=== PATIENT | male | born 1980 | race Caucasian/White ===

== ENCOUNTER → 2019-12-23 16:16 | Outpatient (BNVA) | payer OTHER, SELFPAY | PROVIDERS: Family Provider Internal Medicine; PCP Internal Medicine; Visit Provider Nurse Practitioner Family | DX: Z11.59 Encounter for screening for other viral diseases (principal); Z20.828 Contact with and (suspected) exposure to other viral communicable diseases; J06.9 Acute upper respiratory infection, unspecified | CPT/HCPCS: 87635 ==

== ENCOUNTER → 2020-03-30 15:13 | Outpatient (BNVA) | payer OTHER, SELFPAY | PROVIDERS: Family Provider Internal Medicine; PCP Internal Medicine; Visit Provider Podiatrist Foot & Ankle Surgery | DX: M79.672 Pain in left foot (principal) | CPT/HCPCS: 73630 ==

== ENCOUNTER 2020-05-01 19:20 | Emergency (ER) | payer OTHER, SELFPAY ==
[2020-05-01 19:29] VITALS: BP 186/107; PULSE 95; RESP 16; TEMP 36.7; O2SAT 99; BMI 29.9
[2020-05-01 19:51] VITALS: BP 170/98; PULSE 98; RESP 17; O2SAT 97
--- NOTE | 2020-05-01 19:51 | ECG_ITS ---
[facility] Test Date: 2020-05-01 Pat Name: Fei Panchal Department: Room: Gender: Male Head Of Stock: : 1980 Requested By: Reginald Loving Order Number: [id number] Luis Solo MD: Dolly Hernandez M.D. Measurements Intervals [place] Rate: 99 P: 63 OR: 146 QRS: 20 QRSD: 101 T: 0 QT: 324 QTc: 416 Interpretive Statements SINUS RHYTHM POSSIBLE RIGHT VENTRICULAR CONDUCTION DELAY [RSR (QR) IN V1/V2] NONSPECIFIC T-WAVE ABNORMALITY Compared to ECG 02/15/2017 00:02:03 T-wave abnormality now present Sinus arrhythmia no longer present Electronically Signed On 05-02-2020 12:43:19 QUILL MACHINE TENDER by Dolly Hernandez M.D. [id number]
--- NOTE | 2020-05-01 19:51 | XR_ITS ---
WS: [id number] Exam: XR chest 1V portable [id number] Date/Time of Exam: 05/01/2020 7:51 PM Reason For Exam: cp Comparison 08/24/2016. The lungs are fully expanded and clear. Unremarkable cardiomediastinal structures. Several old right rib fractures. Old fracture and separation of the distal left clavicle. XR/XR chest 1V portable [id number] IMPRESSION: 1. No acute cardiopulmonary finding. No change.
--- NOTE | 2020-05-01 20:08 | ED_ITS ---
HPI - Chest Pain General: Chief Complaint: Chest Pain Stated Complaint: CP Time Seen by Provider: 05/01/20 19:49 History of Present Illness: HPI narrative: The patient is a 40-year-old male with past medical history hypertension who comes to the ER complaining of midsternal chest pain that started last night and it comes and goes. Not related to movement, breathing, or any other factors. 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 MD complaint: chest pain Prior episodes: No Onset: during rest Pain location: substernal Pain radiation: none Severity: mild Quality: sharp Exacerbating factors: nothing Associated symptoms: Reports no associated symptoms; Deny abdominal pain, dyspnea or palpitations Review of Systems General: Reports: 10 or more systems reviewed and unremarkable except in HPI and below Const: Denies: fatigue Eyes: Denies: change in vision, blurry vision or eye redness ENMT: Denies: throat pain, swelling of lips/tongue, ear or mastoid pain or nasal congestion Card: Reports: chest pain; Denies: palpitations, irregular heart rhythm, edema, dyspnea on exertion or orthopnea Resp: Denies: dyspnea, productive cough or non-productive cough GI: Denies: abdominal pain, diarrhea or GI cramping : Denies: flank pain, urinary frequency or urinary urgency Musc: Denies: neck pain, back pain, extremity pain, joint pain, joint redness, limited range of motion or muscle weakness Skin/Breast: Denies: rash, pruritus, erythema, skin pain or skin tenderness Neuro: Denies: headache(s), numbness in extremities, weakness in extremities, sensory changes, difficulty walking, dizziness, confusion or Slurred speech present Psych: Denies: anxiety or depression Endo: Denies: polyuria All/Imm: Denies: urticaria, throat swelling or tongue swelling PFSH ED PFSH: Medical History (Updated 05/01/20 @ 22:23 by Reginald Loving MD) GERD (gastroesophageal reflux disease) Hypertension Muscle spasm Social History (Updated 03/30/20 @ 15:27 by Kayley Hernandez LPN) Smoking and tobacco status: current every day smoker cigarettes Packs smoked per day: 0.5 Alcohol intake: never Lives independently: Yes Household members: spouse and children Marital status: Physical Exam Const: COMMON NORMALS: no acute distress, average body habitus, patient oriented x3, no limitations, healthy appearing, alert and well nourished GENERAL APPEARANCE: cooperative, comfortable, well kempt and well developed ORIENTATION/CONSCIOUSNESS: Yes awake, Yes oriented to person, Yes oriented to place and Yes oriented to time HENMT: COMMON NORMALS: normocephalic, external ears normal and Normal external nose present HEAD & SCALP: normal to inspection and normocephalic NOSE: Normal external nose present EXTERNAL EAR: Yes external ears normal MOUTH: Normal oral and palatal mucosa present THROAT: posterior oropharynx normal Eye: COMMON NORMALS: Equal, round and reactive pupils present and EOMs intact bilaterally GENERAL EYE: appearance normal, both eyes and all related structures PUPIL: Yes Equal, round and reactive pupils present Neck/C-Spine: COMMON NORMALS: full ROM, no lymphadenopathy, no meningeal signs and no JVD GENERAL: Yes normal visual inspection Lymph: LYMPHATIC: no lymphadenopathy noted Chest: COMMONS NORMALS: normal inspection of the chest and normal palpation of entire chest wall Resp: COMMON NORMALS: normal respiratory effort, No retractions, No use of accessory muscles, clear to auscultation bilaterally and percussion normal EFFORT & INSPECTION: Yes able to speak in complete sentences AUSCULTATION: clear to auscultation bilaterally PERCUSSION: percussion normal Cardio: COMMON NORMALS: no JVD, regular rate, regular rhythm, S1 normal heart sound present, S2 normal heart sound present and Peripheral pulses 2+ throughout RATE: regular rate RHYTHM: regular rhythm HEART SOUNDS: S1 normal heart sound present and S2 normal heart sound present PERIPHERAL PULSES: Peripheral pulses 2+ throughout GI: COMMON NORMALS: Normal to inspection, nondistended, normoactive bowel sounds present, Soft to palpation, non-tender and no masses INSPECTION: Yes normal to inspection PALPATION: Yes Soft to palpation : COMMON NORMALS: Yes no CVA tenderness BLADDER/KIDNEY EXAM: Yes no CVA tenderness Back/Pelvis: COMMON NORMALS: no CVA tenderness, thoracic and lumbar spine normal to inspection, no thoracic nor lumbar tenderness and thoraco-lumbar ROM normal Extremity: COMMON NORMALS: normal to inspection, full ROM, capillary refill normal, no joint enlargement and no pedal edema GENERAL: Yes normal exam except as noted Neuro: COMMON NORMALS: patient oriented x3, CN's II-XII intact bilaterally, moves all extremities, no focal motor deficits, no sensory deficits noted and gait normal SENSORIUM/ORIENTATION: Yes alert, Yes oriented to person, Yes oriented to place and Yes oriented to time MENINGEAL SIGNS: Yes no meningeal signs Psych: COMMON NORMALS: mental status grossly normal, Normal thought process present, cooperative, normal affect and speech normal APPEARANCE: Yes well kempt ATTITUDE: Yes calm SPEECH: Yes normal speech THOUGHT PROCESS: Normal thought process present Skin: COMMON NORMALS: no rashes or lesions noted GENERAL SKIN EXAM: no rashes or lesions noted Course Vital Signs: Vital signs: Vital Signs Temperature 98.0 F 05/01/20 19:29 Pulse Rate 98 05/01/20 19:51 Respiratory Rate 17 05/01/20 19:51 Blood Pressure 170/98 05/01/20 19:51 Pulse Oximetry 97 05/01/20 19:51 MDM - Chest Pain MDM Narrative: Medical decision making narrative: Patient came into the ER complaining of atypical chest pain. EKG and troponin were normal. D-dimer was elevated. Chest x-ray and CT angiogram of the chest were normal. Stable for discharge home. Recommended following up with a insole tape stitcher uco and placed a case management referral to help him do this. Follow-up with primary care physician in 2 to 3 days to monitor improvement of symptoms. Return to the ER with worsening symptoms Lab Data: Labs: Lab Results 05/01/20 05/01/20 05/01/20 Range/Units 20:05 20:05 20:05 WBC 6.5 (4.0-10.0) 10^3/ uL RBC 4.53 (4.1-5.3) 10^6/u L Hgb 14.2 (11.7-16.6) g/dL Hct 41.5 L (42.0-52.0) % MCV 91.6 (80-94) fL MCH 31.3 (28.0-34.0) pg MCHC 34.2 (30.0-36.0) g/dL RDW 13.2 (12.1-15.1) % Plt Count 286 (130-400) 10^3/c mm MPV 9.9 (7.4-10.4) fL Neut % (Auto) 49.1 % Lymph % (Auto) 37.9 % [place] % (Auto) 10.7 % Eos % (Auto) 1.5 % Baso % (Auto) 0.6 % Neut # (Auto) 3.17 (1.8-7.7) 10^3/u L Lymph # (Auto) 2.5 (0.8-4.8) 10^3/u L [place] # (Auto) 0.7 (0.2-0.9) 10^3/u L Eos # (Auto) 0.1 (0.0-0.8) 10^3/u L Baso # (Auto) 0.0 (0.0-0.1) 10^3/u L Nucleated RBC % (a uto) 0 % Nucleated RBCs # 0.0 /100WBC D-Dimer 1.96 H (0-0.59) ug/mIFE U Sodium 137 (136-145) mmol/L Potassium 4.1 (3.5-5.1) mmol/L Chloride 101 (98-107) mmol/L Carbon Dioxide 25 (22-29) mmol/L Anion Gap 15.1 (5-19) BUN 15 (6-20) mg/dL Creatinine 1.0 (0.7-1.2) mg/dL GFR Calculation 82.8 L (90-130) mL/min Glucose 87 (65-115) mg/dL Calculated Osmolal ity 284 L (285-295) mOsm/k g Calcium 9.2 (8.5-10.5) mg/dL Total Bilirubin 0.2 (0.15-1.2) mg/dL AST 24 (0-40) U/L ALT 51 H (0-41) U/L Alkaline Phosphata se 68 (40-130) IU/L Troponin T Baselin e (0-15) ng/L Total Protein 7.4 (6.6-8.7) g/dL Albumin 4.4 (3.5-5.2) g/dL Globulin 3.0 (1.3-4.6) g/dL 05/01/20 Range/Units 20:05 WBC (4.0-10.0) 10^3/ uL RBC (4.1-5.3) 10^6/u L Hgb (11.7-16.6) g/dL Hct (42.0-52.0) % MCV (80-94) fL MCH (28.0-34.0) pg MCHC (30.0-36.0) g/dL RDW (12.1-15.1) % Plt Count (130-400) 10^3/c mm MPV (7.4-10.4) fL Neut % (Auto) % Lymph % (Auto) % [place] % (Auto) % Eos % (Auto) % Baso % (Auto) % Neut # (Auto) (1.8-7.7) 10^3/u L Lymph # (Auto) (0.8-4.8) 10^3/u L [place] # (Auto) (0.2-0.9) 10^3/u L Eos # (Auto) (0.0-0.8) 10^3/u L Baso # (Auto) (0.0-0.1) 10^3/u L Nucleated RBC % (a uto) % Nucleated RBCs # /100WBC D-Dimer (0-0.59) ug/mIFE U Sodium (136-145) mmol/L Potassium (3.5-5.1) mmol/L Chloride (98-107) mmol/L Carbon Dioxide (22-29) mmol/L Anion Gap (5-19) BUN (6-20) mg/dL Creatinine (0.7-1.2) mg/dL GFR Calculation (90-130) mL/min Glucose (65-115) mg/dL Calculated Osmolal ity (285-295) mOsm/k g Calcium (8.5-10.5) mg/dL Total Bilirubin (0.15-1.2) mg/dL AST (0-40) U/L ALT (0-41) U/L Alkaline Phosphata se (40-130) IU/L Troponin T Baselin e 6 (0-15) ng/L Total Protein (6.6-8.7) g/dL Albumin (3.5-5.2) g/dL Globulin (1.3-4.6) g/dL Discharge Plan Discharge Patient Disposition: Home Clinical Impression: Atypical chest pain Condition: Stable Prescriptions: No Action prazosin 2 mg capsule 2 mg PO DAILY RF: 0 losartan 50 mg tablet 50 mg PO DAILY RF: 0 clomipramine 50 mg capsule 50 mg PO DAILY RF: 0 tizanidine 4 mg capsule 4 mg PO BID PRNRF: 0 ibuprofen 200 mg tablet 200 mg PO Q6H PRNRF: 0 omeprazole 20 mg capsule,delayed release(DR/EC) 20 mg PO DAILY RF: 0 prednisone 10 mg tablet 10 mg PO DIRECTED Qty: 42 RF: 0 (DME) Sole Supports See Rx Instructions .ROUTE .MEDSUPPLY Qty: 1 RF: 0 Discharge Orders: Discharge ED (Routine); Ordered 05/01/20 Ordered By: Reginald Loving Referrals: Madeleine Khan MD [Primary Care Provider] - Discharge Diet: Advance as tolerated Discharge Activity: Resume usual activity Patient Instructions: Chest Pain (ED), Opioid Safety Activity Restrictions/Additional Instructions: The cause of your chest pain is unclear but it has resolved since being in the ER and your testing is normal. Please follow-up with your primary care physician in a few days to monitor improvement of your symptoms. I have placed a referral with our case loader operator who will help you get a appointment with a insole tape stitcher uco. They should call you tomorrow to help get this arranged. Please return to the ER with any worsening symptoms Coding Level of Care Code ED Trackwalker for Kev Fwd Exam Comprehensive
[2020-05-01 20:13] LABS: Basophils % 0.6 %; Eosinophils # 0.1 10^3/uL (0.0-0.8); Eosinophils % 1.5 %; Hematocrit 41.5 % (42.0-52.0); Hemoglobin 14.2 g/dL (11.7-16.6); Lymphocytes # 2.5 10^3/uL (0.8-4.8); Lymphocytes % 37.9 %; Mean Corpuscular HGB Conc 34.2 g/dL (30.0-36.0); Mean Corpuscular Hemoglobin 31.3 pg (28.0-34.0); Mean Corpuscular Volume 91.6 fL (80-94); Mean Platelet Volume 9.9 fL (7.4-10.4); Monocytes # 0.7 10^3/uL (0.2-0.9); Monocytes % 10.7 %; Neutrophils # 3.17 10^3/uL (1.8-7.7); Neutrophils % 49.1 %; Nucleated Red Blood Cells % 0 %; Platelet Count 286 10^3/cmm (130-400); Red Blood Count 4.53 10^6/uL (4.1-5.3); Red Cell Distribution Width 13.2 % (12.1-15.1); White Blood Count 6.5 10^3/uL (4.0-10.0)
[2020-05-01 20:26] LABS: D Dimer 1.96 ug/mIFEU (0-0.59)
[2020-05-01 20:31] LABS: Alanine Aminotransferase 51 U/L (0-41); Albumin Level 4.4 g/dL (3.5-5.2); Alkaline Phosphatase 68 IU/L (40-130); Anion Gap 15.1 (5-19); Aspartate Amino Transferase 24 U/L (0-40); Blood Urea Nitrogen 15 mg/dL (6-20); Calcium 9.2 mg/dL (8.5-10.5); Carbon Dioxide 25 mmol/L (22-29); Chloride 101 mmol/L (98-107); Creatinine Clr Calc Pharmacy 116.9289; Glomerular Filtration Rate 82.8 mL/min (90-130); Glucose 87 mg/dL (65-115); Osmolality Calculated 284 mOsm/kg (285-295); Potassium 4.1 mmol/L (3.5-5.1); Sodium 137 mmol/L (136-145); Total Bilirubin 0.2 mg/dL (0.15-1.2); Total Protein 7.4 g/dL (6.6-8.7)
[2020-05-01 20:33] LABS: Troponin(5th) Baseline 6 ng/L (0-15)
--- NOTE | 2020-05-01 20:37 | CTR_ITS ---
PROCEDURE INFORMATION: Exam: CT Angiography Chest With Contrast Exam date and time: 05/01/2020 8:58 PM Age: 40 years old Clinical indication: Sternal or substernal pain; Patient HX: C/O mid sternal cp w elev d-dimer; Additional info: R/O pe TECHNIQUE: Imaging protocol: Computed tomographic angiography of the chest with contrast. 3D rendering (Not supervised by radiologist): MIP and/or 3D reconstructed images were created by the technologist. Total images: 921 Radiation optimization: All CT scans at this facility use at least one of these dose optimization techniques: automated exposure control; mA and/or kV adjustment per patient size (includes targeted exams where dose is matched to clinical indication); or iterative reconstruction. Contrast material: OMNI 350; Contrast volume: 86 ml; Contrast route: INTRAVENOUS (IV); COMPARISON: CR XR chest 1V portable [id number] 05/01/2020 8:04 PM RADIATION DOSE METRICS: Total DLP (mGy-cm): 618.72 FINDINGS: Pulmonary arteries: Suboptimal pulmonary arterial contrast enhancement. No grossly visible central pulmonary embolism/pulmonary arterial thrombus. Aorta: The thoracic aorta is nonaneurysmal. No visible intimal flap or dissection. Lungs: No visible active interstitial or alveolar airspace disease. Calcified granulomas of antecedent disease. Pleural spaces: Unremarkable. No pneumothorax. No pleural effusion. Heart: Unremarkable. No cardiomegaly. No pericardial effusion. No visible coronary artery disease. Lymph nodes: No visible active mediastinal or hilar lymphadenopathy. Few marginally prominent mediastinal and hilar lymph nodes of doubtful clinical significance. Dominant anterior mediastinal lymph node measures only 7 mm in the short axis. Large calcified mediastinal and hilar complexes of antecedent granulomatous disease. Adrenal glands: Small 15 mm left adrenal adenoma. No follow-up recommended. Right adrenal gland unremarkable. Bones/joints: No visible active or acute osseous pathology. Old right rib fractures. Soft tissues: Unremarkable. CT/CT angio chest PE protcl [id number] IMPRESSION: 1. Suboptimal pulmonary arterial contrast enhancement. No grossly visible central pulmonary embolism/pulmonary arterial thrombus. 2. Antecedent granulomatous disease. 3. Small 15 mm left adrenal adenoma. No follow-up recommended. Radiation Dose CTDIVOL = (mGy): DLP = 618.72 (mGy-cm)
[2020-05-01] MEDS: iohexol 350 mg/mL 100 mL Btl IV (21:25)
[2020-05-01 22:34] VITALS: BP 148/100; PULSE 84; RESP 17; TEMP 36.7; O2SAT 98
--- NOTE | 2020-05-02 10:34 | DCPLANNER ---
manufacturing area manager had message to schedule a follow up appointment for patient with [facility]. manufacturing area manager called [facility], spoke with Marya, gave clinic patients information. A follow up appointment was scheduled for Monday, May 11, 2020 at 8:[address] Hernandez. manufacturing area manager called phone number [phone], unable to speak with patient at this time. manufacturing area manager left a voicemail for patient that included the appointment information. Patient has [employer] insurance, case assistant emailed patients information to June, with [employer] [facility] [employer] [facility], along with the appointment information, so that the authorization process can be started.
--- NOTE | 2020-05-17 12:43 | DCPLANNER ---
Patient had follow up appointment scheduled for 05.11.[address] Reid at [facility] - patient did attend appointment.
== END 2020-05-01 22:34 | disposition home or self-care (01) ==
PROVIDERS: Emergency Provider Family Medicine; PCP Family Medicine
DX: R07.89 Other chest pain (principal); I10 Essential (primary) hypertension; F17.210 Nicotine dependence, cigarettes, uncomplicated
CPT/HCPCS: 71045; 71275; 80053; 84484; 85025; 85378; 93005; 99284; Q9967

== ENCOUNTER → 2020-10-03 15:21 | Outpatient (BNVA) | payer OTHER, SELFPAY | PROVIDERS: PCP Family Medicine; Visit Provider Podiatrist Foot & Ankle Surgery | DX: M79.671 Pain in right foot (principal) | CPT/HCPCS: 73630 ==

== ENCOUNTER 2020-10-03 16:14 | Outpatient (CLI) | payer OTHER, SELFPAY | END 2020-10-03 16:15 | disposition home or self-care (01) | LOC: SPT 16:15 | PROVIDERS: PCP Family Medicine; Visit Provider Podiatrist Foot & Ankle Surgery | DX: Z46.89 Encounter for fitting and adjustment of other specified devices (principal); S86.011D Strain of right Achilles tendon, subsequent encounter; X58.XXXD Exposure to other specified factors, subsequent encounter | CPT/HCPCS: 97760; L4361 ==

== ENCOUNTER 2020-11-01 14:43 | Outpatient (CLI) | payer OTHER, SELFPAY ==
--- NOTE | 2020-11-01 14:46 | MR_ITS ---
WS: [id number] MRI RIGHT ANKLE NONCONTRAST TECHNIQUE: Sagittal proton density, sagittal STIR, axial proton density, axial T1, axial T2 fat sat, coronal proton density, coronal proton density fat sat, coronal T2 fat sat. CLINICAL INFORMATION: Rupture of achilles tendon COMPARISON: None. FINDINGS: Diffuse edema in the dorsal calcaneus with fluid in the retrocalcaneal bursa compatible with retrocal caneal bursitis. Achilles tendon appears intact. Tiny amount of tendinosis in the distal Achilles ins ertion. No evidence of high-grade tear. Associated edema in Kager's fat pad. No significant tendon th ickening. Normal medial and lateral malleolus. Normal talar dome. Tenosynovitis involving the flexor compartmen t tendons more prominent about the flexor hallucis longus with fluid along the tendon sheath. Visuali zed extensor compartment tendons appear normal. Normal peroneal brevis and longus. Normal peroneal te ndon sheaths. Normal talocalcaneal articulation. Normal navicular. Tarsal bones otherwise appear normal. Normal maggi ar neck. MR/MR ankle RT wo con* [id number] IMPRESSION: 1. Diffuse edema involving the dorsal calcaneus at the Achilles insertion with surrounding soft tissue edema. Fluid within the retrocalcaneal bursa compatibl e with retrocalcaneal bursitis. 2. Associated subchondral degenerative changes involving the dorsal calcaneus. 3. Achilles tendon appears intact. Minimal tendinosis involving the Achilles i nsertion. No high-grade tears. 4. Otherwise normal bone marrow signal. Normal ankle mortise. 5. Normal peroneus longus and brevis. 6. Tenosynovitis involving the flexor compartment tendons more prominent along the flexor hallucis longus.
== END 2020-11-01 14:44 | disposition home or self-care (01) ==
LOC: RADSHAW 14:45
PROVIDERS: PCP Family Medicine; Visit Provider Podiatrist Foot & Ankle Surgery
DX: S86.019A Strain of unspecified Achilles tendon, initial encounter (principal); R60.0 Localized edema; S93.401A Sprain of unspecified ligament of right ankle, initial encounter; X58.XXXA Exposure to other specified factors, initial encounter
CPT/HCPCS: 73721

== ENCOUNTER 2021-02-28 09:16 | Outpatient (CLI) | payer OTHER, SELFPAY ==
--- NOTE | 2021-02-28 09:30 | MR_ITS ---
WS: [id number] INDICATION: Chronic foot pain TECHNIQUE: MR of the left foot without gadolinium enhancement FINDINGS: Diffuse edema in the dorsal plantar calcaneus more prominent laterally at the medial and lateral calc aneal insertion with mild thickening of the plantar fascia measuring 4.8 mm in maximum dimension. Ass ociated prefascial edema with a small amount of edema in the dorsal plantar calcaneus. Findings shelbie tible with plantar fasciitis. Plantar fascia distally has a normal appearance. Normal tibiotalar joint. Normal talocalcaneal articulation. Diffuse edema involving the base of fifth metatarsal with surrounding periarticular edema. Pes planus. Recommend correlation for contusion. In addition diffuse edema involving the medial aspect of the navicular with surrounding soft tissue rolo ma. Recommend correlation for trauma in this location. Metatarsals otherwise appear normal. Tenosynovitis along the flexor compartment tendons. Normal visualized peroneal longus and brevis. The Achilles tendon is normal in appearance. Normal ankle mortise. Normal medial lateral malleolus. MR/MR foot LT wo con* [id number] IMPRESSION: 1. Diffuse edema involving the base of the fifth metatarsal and medial aspect of the navicular. Recommend correlation for recent injury and contusion. Surrou nding soft tissue edema in these locations. 2. Diffuse edema involving the dorsal calcaneus along the medial and lateral p lantar calcaneal insertion with perifascial and surrounding soft tissue edema. Mild thickening and edema of the plantar fascia. Findings compatible with plant ar fasciitis. Distal aponeurosis has a normal appearance. 3. Distal Achilles tendon insertion appears normal.
== END 2021-02-28 09:17 | disposition home or self-care (01) ==
LOC: RADSHAW 09:23
PROVIDERS: PCP Family Medicine; Visit Provider Podiatrist Foot & Ankle Surgery
DX: M76.61 Achilles tendinitis, right leg (principal); M21.41 Flat foot [pes planus] (acquired), right foot; M21.42 Flat foot [pes planus] (acquired), left foot; M76.62 Achilles tendinitis, left leg; R60.0 Localized edema
CPT/HCPCS: 73718

== ENCOUNTER → 2021-07-04 15:33 | Outpatient (BNVA) | payer OTHER, SELFPAY | PROVIDERS: PCP Family Medicine; Visit Provider Podiatrist Foot & Ankle Surgery | DX: M21.41 Flat foot [pes planus] (acquired), right foot (principal); M21.42 Flat foot [pes planus] (acquired), left foot; M76.61 Achilles tendinitis, right leg; M76.62 Achilles tendinitis, left leg; M72.2 Plantar fascial fibromatosis; F17.210 Nicotine dependence, cigarettes, uncomplicated | CPT/HCPCS: 99214 ==

== ENCOUNTER → 2021-08-16 16:02 | Outpatient (BNVA) | payer OTHER, SELFPAY | PROVIDERS: PCP Family Medicine; Visit Provider Podiatrist Foot & Ankle Surgery | DX: M21.41 Flat foot [pes planus] (acquired), right foot (principal); M21.42 Flat foot [pes planus] (acquired), left foot; M76.61 Achilles tendinitis, right leg; M76.62 Achilles tendinitis, left leg; M72.2 Plantar fascial fibromatosis | CPT/HCPCS: 99213; 99214 ==

== ENCOUNTER 2021-09-13 15:36 | Emergency (ER) | payer OTHER, SELFPAY ==
[2021-09-13 15:59] VITALS: BP 145/93; PULSE 96; RESP 16; TEMP 36.8; O2SAT 97; BMI 30.9
--- NOTE | 2021-09-13 17:10 | W.ED.GENADLT ---
HPI - General Adult General: Chief complaint: General Medical Stated complaint: Not eating or drinking Time Seen by Provider: 09/13/21 17:09 [facility] ED PFSH: Medical History GERD (gastroesophageal reflux disease) Hypertension Muscle spasm Family History Family/Other CAD (coronary artery disease) Grandfather Heart failure Rheumatic fever Denies family history of Diabetes Stroke Social History Smoking and tobacco status: current every day smoker cigarettes Packs smoked per day: 0.5 Alcohol intake: never Lives independently: Yes Household members: spouse and children Marital status: Course Vital Signs: Vital signs: Vital Signs Temperature 98.3 F 09/13/21 15:59 Pulse Rate 96 09/13/21 15:59 Respiratory Rate 16 09/13/21 15:59 Blood Pressure 145/93 09/13/21 15:59 Pulse Oximetry 97 09/13/21 15:59 Discharge Plan Discharge Condition: Stable Prescriptions: No Action prazosin 2 mg capsule 2 mg PO DAILY 0RF tizanidine 4 mg capsule 4 mg PO BID PRN0RF ibuprofen 200 mg tablet 200 mg PO Q6H PRN0RF omeprazole 20 mg capsule,delayed release(DR/EC) 20 mg PO DAILY 0RF nitroglycerin 0.1 mg/hr patch 24 hour 1 patch transdermal DAILY Qty: 30 0RF Rx Instructions: allow nitrate-free interval of approx. 10-12 hrs per 24-hour period losartan 50 mg tablet 75 mg PO DAILY Qty: 45 3RF (DME) Custom Molded Orthotics See Rx Instructions .Route .MEDSUPPLY Qty: 1 0RF Rx Instructions: As directed, to be custom made by [facility] Physical Therapy Department I am requesting authorization to perform molds of his feet in podiatry clinic at [facility] and for custom orthotics to be manufactured through [facility] physical therapy department to treat plantar fasciitis bilaterally on this patient. Would require authorization for custom molded orthotics L code 3030 and dispensing through physical therapy CPT code 66051 clobetasol 0.05 % ointment 1 applic topical BID 14 Days Qty: 60 1RF Rx Instructions: to affected areas on knees no more than 2 wks/mo prn alternating with triamcinolone triamcinolone acetonide 0.1 % ointment 1 applic topical BID Qty: 80 2RF Rx Instructions: to knees BID alt. with clobetasol as needed for flares no more than 2 wks/mo calcipotriene 0.005 % cream 1 applic topical BID Qty: 120 1RF Rx Instructions: rub in gently and completely prn to affected areas. May use on face Referrals: Madeliene Khan MD [Primary Care Provider] - Coding Level of Care Code ED Fiber Design Engineer for Kev Jacobson
--- NOTE | 2021-09-13 18:47 | ECG_ITS ---
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 Measurements Intervals [place] Rate: 75 P: 67 [place]: 139 QRS: 79 QRSD: 98 T: 87 QT: 362 QTc: 407 Interpretive Statements SINUS RHYTHM WITH SINUS ARRHYTHMIA Compared to ECG 05/01/2020 19:27:39 T-wave abnormality no longer present Electronically Signed On 09-13-2021 19:42:05 CDT by Samuel Dye M.D. [id number]
--- NOTE | 2021-09-13 18:48 | ED_ITS ---
HPI - General Adult General: Chief complaint: General Medical Stated complaint: Not eating or drinking Time Seen by Provider: 09/13/21 17:09 Source: patient and family Mode of arrival: ambulatory Limitations: no limitations History of Present Illness: This patient was brought to the emergency department by his spouse. She is concerned about his self-imposed fasting. He apparently is been on a food fast for the last 3+ days and on a water fast for the last 1+ day. She is concerned that he might harm himself or he may from this fasting. He apparently has had some history of alcoholism in the past and it has some loosening of associations and rather different or not quite bizarre behavior according to what is alleged by various history sources. He apparently has a history of alcoholism but is states he has been sober for 4-1/2 years. He states he is fasting solely because he feels that it is heart that is what God is calling him to do. He states that he plans on stopping his fasting in the next 48 hours or less. He specifically states he does not have any plans to harm himself. He has not been drinking alcohol, using any street drugs or any other nonprescribed substances. 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 He denies any chest pain, lightheadedness, palpitations etc. No known recent exposure to infectious disease etc. He specifically denies any thoughts of harming himself or others. Associated symptoms: Deny chest pain, dyspnea, headache(s), nausea, rash, palpitations, syncope or vomiting Review of Systems Const: Denies: fever(s), chills or body aches Eyes: Denies: change in vision ENMT: Denies: throat pain, odynophagia or nasal congestion Card: Denies: chest pain, palpitations, irregular heart rhythm, edema, lightheadedness, syncope or pre-syncope Resp: Denies: dyspnea, productive cough or non-productive cough GI: Denies: abdominal pain, nausea or vomiting : Denies: flank pain, difficulty urinating, dysuria or urinary frequency Musc: Denies: neck pain, back pain, extremity pain or extremity swelling Skin/Breast: Denies: rash Neuro: Denies: headache(s), numbness in extremities, weakness in extremities, dizziness, vertigo or Slurred speech present Psych: Denies: anxiety, depression, mood swings, panic attacks, sleeping less, visual hallucinations, auditory hallucinations, suicidal ideation or homicidal ideation Endo: Denies: polyuria Wally/Lymph: Denies: easy bruising or easy bleeding PFS ED PFSH: Medical History GERD (gastroesophageal reflux disease) Hypertension Muscle spasm Family History Family/Other CAD (coronary artery disease) Grandfather Heart failure Rheumatic fever Denies family history of Diabetes Stroke Social History Smoking and tobacco status: current every day smoker cigarettes Packs smoked per day: 0.5 Alcohol intake: never Lives independently: Yes Household members: spouse and children Marital status: Physical Exam Narrative: EXAM NARRATIVE: Makes good eye contact. He is pleasant and interactive. His speech is fluent and goal-directed. Const: COMMON NORMALS: no acute distress, average body habitus, patient oriented x3 and alert GENERAL APPEARANCE: cooperative, comfortable and well kempt ORIENTATION/CONSCIOUSNESS: Yes awake HENMT: COMMON NORMALS: normocephalic and Normal nasal mucous membranes and turbinates present HEAD & SCALP: normocephalic NOSE: Normal nasal mucous membranes and turbinates present Eye: COMMON NORMALS: Equal, round and reactive pupils present, conjunctivae normal and no scleral icterus CONJUNCTIVA: Yes conjunctivae normal PUPIL: Yes Equal, round and reactive pupils present Neck/C-Spine: COMMON NORMALS: full ROM and Thyroid normal THYROID: Thyroid normal Lymph: LYMPHATIC: no lymphadenopathy noted Chest: COMMONS NORMALS: normal inspection of the chest Resp: COMMON NORMALS: normal respiratory effort, No retractions and No use of accessory muscles EFFORT & INSPECTION: Yes able to speak in complete sentences Cardio: COMMON NORMALS: regular rhythm and Peripheral pulses 2+ throughout RHYTHM: regular rhythm PERIPHERAL PULSES: Peripheral pulses 2+ throughout GI: COMMON NORMALS: Normal to inspection, nondistended, normoactive bowel sounds present and Soft to palpation PALPATION: Yes Soft to palpation : COMMON NORMALS: Yes no CVA tenderness BLADDER/KIDNEY EXAM: Yes no CVA tenderness Back/Pelvis: COMMON NORMALS: no CVA tenderness, thoracic and lumbar spine normal to inspection, no thoracic nor lumbar tenderness and thoraco-lumbar ROM normal Extremity: COMMON NORMALS: normal to inspection, full ROM, capillary refill normal, no calf tenderness and no pedal edema Neuro: COMMON NORMALS: patient oriented x3, moves all extremities and no sensory deficits noted SENSORIUM/ORIENTATION: Yes alert GAIT: Yes Normal gait present Psych: COMMON NORMALS: Normal thought process present, cooperative, normal affect, speech normal, denies hallucinations, denies homicidal ideation and denies suicidal ideation APPEARANCE: Yes well kempt ATTITUDE: Yes calm and Yes engaged SPEECH: Yes normal speech THOUGHT PROCESS: Normal thought process present THOUGHT CONTENT: Yes Normal thought content present Skin: COMMON NORMALS: no rashes or lesions noted and turgor normal GENERAL SKIN EXAM: no rashes or lesions noted and turgor normal Course Reevaluation(s): Reevaluation #1: The patient is remained very stable and cooperative throughout his emergency department stay. Repeat evaluation reveals him to be interactive calm and again denying any thoughts of harm to self or others. He has decided to give up his f ast and in fact has drank 16 ounces of water since her last evaluation. When queried if he would like to go home he he acknowledged in the affirmative. I asked him to call his and see if she would come pick him up and take him home. At this point in time he has displayed no evidence of disordered thought, suicidality, homicidality etc. He did have an affidavit from his which she did not acknowledge any concerns about threats of self-harm etc. in that document. Her concern was that this might be a harbinger of possible deterioration in his mental health but at this point time he does not display any findings that would support that notion during his emergency department evaluation and stay. Time: 22:27 Vital Signs: Vital signs: Vital Signs Temperature 98.3 F 09/13/21 15:59 Pulse Rate 96 09/13/21 15:59 Respiratory Rate 16 09/13/21 15:59 Blood Pressure 145/93 09/13/21 15:59 Pulse Oximetry 97 09/13/21 15:59 [facility] - General Adult Medical Decision Making This patient was brought to the emergency department and dropped off by a spouse who was concerned because he had undertaken a self-directed fast which included initially only food and then had included water for the last 36 hours. He was doing this for purely self-motivated mu-ism regions and was adamant that there was no thought insertion, hallucinations etc. at play. He also was not suicidal or not displaying any alterations in decision-making capacity on evaluation here. Medical screening laboratories were reassuring and reevaluation revealed that he had decided to give of its fast and felt that he would like to go back home. Again at this point time no evidence of ongoing mental health concerns and has intact decision-making capacity. Stable for discharge. Lab Data I reviewed the patient's lab results. : 09/13/21 19:35 09/13/21 19:35 Laboratory Results WBC 7.9 10^3/uL (4.0-10.0) 09/13/21 19:35 RBC 5.16 10^6/uL (4.1-5.3) 09/13/21 19:35 Hgb 16.4 g/dL (11.7-16.6) 09/13/21 19:35 Hct 45.0 % (42.0-52.0) 09/13/21 19:35 MCV 87.2 fl (80-94) 09/13/21 19:35 MCH 31.8 pg (28.0-34.0) 09/13/21 19:35 MCHC 36.4 g/dL (30.0-36.0) H 09/13/21 19:35 RDW 12.4 % (12.1-15.1) 09/13/21 19:35 Plt Count 298 10^3/cmm (130-400) 09/13/21 19:35 MPV 9.9 fL (7.4-10.4) 09/13/21 19:35 Neut % (Auto) 54.5 % 09/13/21 19:35 Lymph % (Auto) 34.6 % 09/13/21 19:35 [place] % (Auto) 9.1 % 09/13/21 19:35 Eos % (Auto) 0.6 % 09/13/21 19:35 Baso % (Auto) 0.8 % 09/13/21 19:35 Neut # (Auto) 4.31 10^3/uL (1.8-7.7) 09/13/21 19:35 Lymph # (Auto) 2.7 10^3/uL (0.8-4.8) 09/13/21 19:35 [place] # (Auto) 0.7 10^3/uL (0.2-0.9) 09/13/21 19:35 Eos # (Auto) 0.1 10^3/uL (0.0-0.8) 09/13/21 19:35 Baso # (Auto) 0.1 10^3/uL (0.0-0.1) 09/13/21 19:35 Nucleated RBC % (auto) 0 % 09/13/21 19:35 Nucleated RBCs # 0.0 /100WBC 09/13/21 19:35 Sodium 136 mmol/L (136-145) 09/13/21 19:35 Potassium 4.0 mmol/L (3.5-5.1) 09/13/21 19:35 Chloride 96 mmol/L (98-107) L 09/13/21 19:35 Carbon Dioxide 20 mmol/L (22-29) L 09/13/21 19:35 Anion Gap 24.0 (5-19) H 09/13/21 19:35 BUN 17 mg/dL (6-20) 09/13/21 19:35 Creatinine 0.9 mg/dL (0.7-1.2) 09/13/21 19:35 GFR Calculation 93.0 mL/min (90-130) 09/13/21 19:35 Glucose 70 mg/dL (65-115) 09/13/21 19:35 Calculated Osmolality 282 mOsm/kg (285-295) L 09/13/21 19:35 Calcium 10.0 mg/dL (8.5-10.5) 09/13/21 19:35 Total Bilirubin 0.5 mg/dL (0.15-1.2) 09/13/21 19:35 AST 35 U/L (0-40) 09/13/21 19:35 ALT 65 U/L (0-41) H 09/13/21 19:35 Alkaline Phosphatase 72 IU/L (40-130) 09/13/21 19:35 Total Protein 8.7 g/dL (6.6-8.7) 09/13/21 19:35 Albumin 5.1 g/dL (3.5-5.2) 09/13/21 19:35 Globulin 3.6 g/dL (1.3-4.6) 09/13/21 19:35 Urine Color Yellow (Yellow) 09/13/21 21:00 Urine Appearance Clear (CLEAR) 09/13/21 21:00 Urine pH 5 (5-7) 09/13/21 21:00 Ur Specific [place] 1.025 (1.005-1.030) 09/13/21 21:00 Urine Protein Trace (Negative) 09/13/21 21:00 Urine Glucose (UA) Norm (Normal) 09/13/21 21:00 Urine Ketones 2+ (Negative) H 09/13/21 21:00 Urine Blood 2+ (Negative) H 09/13/21 21:00 Urine Nitrate Negative (Negative) 09/13/21 21:00 Urine Bilirubin 1+ (Negative) H 09/13/21 21:00 Urine Urobilinogen Norm mg/dL (Negative) 09/13/21 21:00 Ur Leukocyte Esterase Negative (Negative) 09/13/21 21:00 Urine RBC 0-4 /hpf (0-2) H 09/13/21 21:00 Urine WBC 0-4 /hpf (0-5) H 09/13/21 21:00 Ur Squamous Epith Cells 0-4 /hpf (0-5) H 09/13/21 21:00 Amorphous Sediment Not Reportable 09/13/21 21:00 Urine Bacteria Trace /hpf (NONE) 09/13/21 21:00 Urine Mucus 4+ /hpf 09/13/21 21:00 EKG Data EKG 1: I personally reviewed and interpreted this EKG as follows: EKG interpretation time: 19:10 Interpretation: EKG shows a ventricular rate of 75 bpm. Underlying rhythm is sinus with occasional sinus arrhythmia. TX intervals normal QRS duration is normal. QTc intervals normal. No acute ST-T wave changes noted at this time. Discharge Plan Discharge Patient Disposition: Home Clinical Impression: Encounter for medical screening examination Condition: Stable Prescriptions: No Action prazosin 2 mg capsule 2 mg PO DAILY 0RF tizanidine 4 mg capsule 4 mg PO BID PRN0RF ibuprofen 200 mg tablet 200 mg PO Q6H PRN0RF omeprazole 20 mg capsule,delayed release(DR/EC) 20 mg PO DAILY 0RF nitroglycerin 0.1 mg/hr patch 24 hour 1 patch transdermal DAILY Qty: 30 0RF Rx Instructions: allow nitrate-free interval of approx. 10-12 hrs per 24-hour period losartan 50 mg tablet 75 mg PO DAILY Qty: 45 3RF (DME) Custom Molded Orthotics See Rx Instructions .Route .MEDSUPPLY Qty: 1 0RF Rx Instructions: As directed, to be custom made by [facility] Physical Therapy Department I am requesting authorization to perform molds of his feet in podiatry clinic at [facility] and for custom orthotics to be manufactured through [facility] physical therapy department to treat plantar fasciitis bilaterally on this patient. Would require authorization for custom molded orthotics L code 3030 and dispensing through physical therapy CPT code 27128 clobetasol 0.05 % ointment 1 applic topical BID 14 Days Qty: 60 1RF Rx Instructions: to affected areas on knees no more than 2 wks/mo prn alternating with triamcinolone triamcinolone acetonide 0.1 % ointment 1 applic topical BID Qty: 80 2RF Rx Instructions: to knees BID alt. with clobetasol as needed for flares no more than 2 wks/mo calcipotriene 0.005 % cream 1 applic topical BID Qty: 120 1RF Rx Instructions: rub in gently and completely prn to affected areas. May use on face Discharge Orders: Discharge ED (Routine); Ordered 09/13/21 Ordered By: Tevin Chavez Referrals: Madeleine Khan MD [Primary Care Provider] - Discharge Diet: Usual diet Discharge Activity: Resume usual activity Patient Instructions: Opioid Safety Activity Restrictions/Additional Instructions: Continue all your usual medications. Continue to increase your fluid and solid intake back to a normal diet. If you at any time feel out of control, have thoughts of harm to yourself or others or other concerns call 911 or return to this or the nearest emergency department immediately. Follow-up with your regular care provider as needed. Coding Level of Care Code ED Release Of Information Clerk for Kev Fwilia Exam Comprehensive
[2021-09-13 19:48] LABS: Basophils # 0.1 10^3/uL (0.0-0.1); Basophils % 0.8 %; Eosinophils # 0.1 10^3/uL (0.0-0.8); Eosinophils % 0.6 %; Hemoglobin 16.4 g/dL (11.7-16.6); Lymphocytes # 2.7 10^3/uL (0.8-4.8); Lymphocytes % 34.6 %; Mean Corpuscular HGB Conc 36.4 g/dL (30.0-36.0); Mean Corpuscular Hemoglobin 31.8 pg (28.0-34.0); Mean Corpuscular Volume 87.2 fl (80-94); Mean Platelet Volume 9.9 fL (7.4-10.4); Monocytes # 0.7 10^3/uL (0.2-0.9); Monocytes % 9.1 %; Neutrophils # 4.31 10^3/uL (1.8-7.7); Neutrophils % 54.5 %; Nucleated Red Blood Cells % 0 %; Platelet Count 298 10^3/cmm (130-400); Red Blood Count 5.16 10^6/uL (4.1-5.3); Red Cell Distribution Width 12.4 % (12.1-15.1); White Blood Count 7.9 10^3/uL (4.0-10.0)
[2021-09-13 20:06] LABS: Alanine Aminotransferase 65 U/L (0-41); Albumin Level 5.1 g/dL (3.5-5.2); Alkaline Phosphatase 72 IU/L (40-130); Aspartate Amino Transferase 35 U/L (0-40); Blood Urea Nitrogen 17 mg/dL (6-20); Carbon Dioxide 20 mmol/L (22-29); Chloride 96 mmol/L (98-107); Globulin 3.6 g/dL (1.3-4.6); Glucose 70 mg/dL (65-115); Osmolality Calculated 282 mOsm/kg (285-295); Sodium 136 mmol/L (136-145); Total Bilirubin 0.5 mg/dL (0.15-1.2); Total Protein 8.7 g/dL (6.6-8.7)
[2021-09-13 21:17] LABS: Bilirubin Urine 1+ (Negative); Blood Urine 2+ (Negative); Glucose Urine UA Norm (Normal); Ketones Urine 2+ (Negative); Nitrate Urine Negative (Negative); Protein Urine Trace (Negative); Specific Gravity, Urine 1.025 (1.005-1.030); Urine Appearance Clear (CLEAR); Urine Color Yellow (Yellow); pH Urine 5 (5-7)
[2021-09-13 21:18] LABS: Add Urine Culture? No; Add Urine Microscopic? YES; Bacteria Urine TRACE /hpf; Leukocyte Esterase Urine Negative (Negative); Mucus Urine 4+ /hpf; RBC Urine 0-4 /hpf (0-2); Squamous Epithelial Cell Urine 0-4 /hpf (0-5); Urobilinogen Urine Norm (Negative); WBC Urine 0-4 /hpf (0-5)
[2021-09-13 22:41] VITALS: BP 138/88; PULSE 84; RESP 18; O2SAT 98
== END 2021-09-13 22:43 | disposition home or self-care (01) ==
PROVIDERS: Emergency Provider Emergency Medicine; PCP Family Medicine
DX: Z00.00 Encounter for general adult medical examination without abnormal findings (principal)
CPT/HCPCS: 80053; 81001; 85025; 93005; 99283

== ENCOUNTER → 2021-09-27 15:21 | Outpatient (BNVA) | payer OTHER, SELFPAY | PROVIDERS: PCP Family Medicine; Visit Provider Podiatrist Foot & Ankle Surgery | DX: M21.41 Flat foot [pes planus] (acquired), right foot (principal); M21.42 Flat foot [pes planus] (acquired), left foot; M76.61 Achilles tendinitis, right leg; M76.62 Achilles tendinitis, left leg; M72.2 Plantar fascial fibromatosis; L60.3 Nail dystrophy | CPT/HCPCS: 99214; 99215 ==

== ENCOUNTER → 2022-05-07 07:58 | Outpatient (BNVA) | payer OTHER, SELFPAY | PROVIDERS: PCP Family Medicine; Visit Provider Podiatrist Foot & Ankle Surgery | DX: M76.61 Achilles tendinitis, right leg (principal); M76.62 Achilles tendinitis, left leg; M21.41 Flat foot [pes planus] (acquired), right foot; M21.42 Flat foot [pes planus] (acquired), left foot; M72.2 Plantar fascial fibromatosis; L60.3 Nail dystrophy | CPT/HCPCS: 99214 ==

== ENCOUNTER 2022-06-01 05:54 | Day surgery (SDC) | payer OTHER, SELFPAY ==
--- NOTE | 2022-05-31 06:30 | XR_ITS ---
WS: [id number] EXAMINATION: XR ankle RT 1V [id number] REASON FOR EXAM: Right Chucky's resection COMPARISON: None available. ORDER DATE: 05/31/2022 6:30 AM X-RAY FINDINGS: Single view demonstrates lateral projection of the hindfoot with some gas from recent operative inter vention near the upper margin of the calcaneus XR/XR ankle RT 1V [id number] IMPRESSION: As above, total fluoroscopy time 2.6 seconds.
[2022-05-31 09:17] VITALS: BMI 25.8
[2022-06-01 06:03] VITALS: BP 136/92; PULSE 65; RESP 16; TEMP 36.6; O2SAT 98
--- NOTE | 2022-06-01 06:18 | W.PM.OPSUD ---
Surgery/Procedure H&P Update DATE OF PROCEDURE: June 01, 2022 DATE H&P PERFORMED: 05/07/22 CHANGES TO PREVIOUS DOCUMENTATION: None PREOP DIAGNOSIS: Right Chucky's deformity PLANNED PROCEDURE: Operation Date: 06/01/22 07:00 Proposed Procedures p Right Chucky's resection 54022, M95.8(Right) - Zay Maldonado DPM
[2022-06-01] MEDS: CELEcoxib 200 mg Capsule 400 MG PO (06:22)
[2022-06-01] MEDS: gabapentin 300 mg Capsule PO (06:23)
[2022-06-01] MEDS: sodium chloride 0.9% 1,000 ML 30 ML IV (06:23)
--- NOTE | 2022-06-01 06:23 | PM.OP ---
Operative Report Date of procedure: June 01, 2022 Pre-op diagnosis: Preop Diagnosis Right Chucky's deformity Post-op diagnosis: Right Chucky's deformity Post-op findings: Right Chucky's deformity Procedure done: Right Chucky's resection. CPT code 69710 Implants: 3-0 Vicryl, 4-0 Vicryl, 4 nylon Specimens removed/disposition: None Pathology: None Surgeon: Zay Maldonado D.P.M. Day Care Assistant: Claire Estimated blood loss: 5 39 IV fluids: 0 Urine output: 0 Complications: None Brief History: Patient wishing to pursue Chucky's resection to the right lower extremity.? 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 Patient has failed a extensive conservative treatment regimen for greater than 1 year that has involved activity modifications, at home physical therapy, formal physical therapy for greater than 6 weeks.? Immobilization, custom orthotics, oral and topical anti-inflammatories.? 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 Performing Chucky's resection with potentially primary Achilles tendon repair planning on December 08, 2021.? Risks include but are not limited to pain, bleeding, numbness, infection, surgical site dehiscence, chronic swelling, chronic numbness, bruising, delayed healing, damage to adjacent soft tissue structures, damage to sural nerve, recurrence of deformity.? Failure to alleviate pain.? Rupture of the Achilles tendon.? Need for further surgical intervention.? Also risk for deep vein thrombosis, heart attack, stroke and .? Patient agreeable wishes to proceed.? Can be done outpatient under general anesthetic.? Has updated H&P from primary care physician which was scanned into his chart.? He got his updated H&P 2022. Procedure: Under mild sedation the patient was brought to the operating room and remained on the gurney in supine position. A timeout was performed. Anesthesia was then administered by the anesthesia service. Of note a right popliteal block was performed per anesthesia preoperatively. Well-padded pneumatic tourniquet was applied to the right high calf. The right lower extremity was scrubbed, prepped and draped utilizing normal aseptic technique. The right foot, ankle and leg were then exanguinated with an Esmarch bandage and the tourniquet inflated to 250 mmHg. Attention was directed to the right posterior lateral heel where a oblique incision was made at the distal/anterior border of the Achilles tendon with dissection carried down through subcutaneous tissue to the layer of periosteum of the calcaneus. Care was taken to retract and preserve neurovascular and tendinous structures. All bleeders were ligated and cauterized as necessary. A Chucky's osseous prominence was appreciated at the posterior calcaneal tubercle and was noted to be most proud at the posterior superior lateral aspect. In oblique fashion a sagittal saw was utilized to transect the Chucky's resection of the posterior calcaneus. All rough edges were smoothed with a rasp. With palpation no rough edges were cruciated. Resection of the osseous prominence also appreciated. The Achilles tendon was left intact during this procedure, resection of calcaneus was performed without disturbing tendinous structure. The incision was irrigated with copious amounts of sterile skin solution. Intraoperative C-arm confirmed resection of the bony prominence. Further irrigation was performed followed by closure, deep layer closed with 3-0 Vicryl, subcutaneous tissue closed with 4-0 Vicryl and skin with 4-0 nylon. Incision was then dressed with Adaptic, sterile 4 x 4, Kerlix and Petey wrap. Cam boot was applied to the right lower extremity. The tourniquet was then deflated and a prompt hyperemic response was noted to the distal digits of the right foot. Patient tolerated the procedure and anesthesia well and was transferred to the PACU with vital signs stable and vascular status intact. Was given at home care instructions, was given scheduled follow-up and my cell phone number to contact with any postoperative questions or concerns.
--- NOTE | 2022-06-01 07:04 | ANES.PREANE2 ---
Pre-Anesthetic Assessment Height/Weight: Height 1.78 m Weight 81.647 kg Temp Pulse Resp BP Pulse Ox O2 Del Method 97.8 F 65 16 136/92 98 06/01/22 06:03 06/01/22 06:03 06/01/22 06:03 06/01/22 06:03 06/01/22 06:03 06/01/22 06:17 Preop Diagnosis: Right Chucky's deformity Operation Date: 06/01/22 07:00 Proposed Procedures p Right Chucky's resection 00782, M95.8(Right) - Zay Maldonado DPM Familial anesthetic complications: NOne Was Beta Damian taken within 24 hours: N/A Was Clonidine taken within 24 hours: N/A Last intake: Intake Last Liquid Date 05/31/22 Last Liquid Time 19:00 Last Solid Date 05/31/22 Last Solid Time 18:00 Social No alcohol and No tobacco Exam alert, oriented x 3, clear to auscultation bilaterally and regular rate & rhythm Airway Mallampati: Class III Dentition: other (missing teeth) CV/HEM HTN - treated with lifestyle modifications GI Gastroesophageal Reflux Disease Anesthetic Plan ASA status: 2 Anesthesia: General and Regional (specify below) Risk of > 500 ml blood loss (7ml/kg in children): No Medications/Allergies Home Medications Medication Instructions Recorded Confirmed Last Taken Type omeprazole 20 mg capsule,delayed 20 mg PO DAILY 03/30/20 05/31/22 05/31/22 History release tizanidine 4 mg capsule 4 mg PO BID PRN Back Pain 03/30/20 05/31/22 Unknown History Custom Molded Orthotics #1 ea 10/03/20 05/07/22 Unknown Rx calcipotriene 0.005 % topical cream 1 applic topical BID #120 grams 04/11/22 05/31/22 05/31/22 Rx clobetasol 0.05 % topical ointment 1 applic topical BID 2 weeks #60 04/11/22 05/31/22 05/30/22 Rx grams triamcinolone acetonide 0.1 % 1 applic topical BID #80 grams 04/11/22 05/31/22 Unknown Rx topical ointment ciclopirox 8 % topical solution 1 applic topical DAILY 4 weeks 05/07/22 05/31/22 05/31/22 Rx #6.6 mL hydrocodone 10 mg-acetaminophen 1 tab PO Q8H PRN pain 7 days #21 06/01/22 Unknown Rx 325 mg tablet tabs Allergies Allergy/AdvReac Type Severity Reaction Status Date / Time No Known Allergies Allergy Verified 06/01/22 06:08 Current Medications Generic Name Dose Route Start Last Admin Trade Name Freq PRN Reason Stop Dose Admin Sodium Chloride 1,000 mls @ 30 mls/hr 06/01/22 06:15 06/01/22 06:23 Sodium Chloride 0.9% IV 06/02/22 06:14 30 mls/hr .Q24H MADYSON Administration PFSH Anesthesia Medical History GERD (gastroesophageal reflux disease) Hypertension Muscle spasm Family History Family/Other CAD (coronary artery disease) Grandfather Heart failure Rheumatic fever Denies family history of Diabetes Stroke Social History Smoking and tobacco status: never smoked Alcohol intake: never Lives independently: Yes Household members: spouse and children Marital status: Data Anesthesia Cardiac Studies: No Data to Display
[2022-06-01] MEDS: ceFAZolin 2,000 MG in sodium chloride 0.9% (plus) 50 ML 100 MG IV (07:06)
--- NOTE | 2022-06-01 07:06 | ANES.PROC ---
Anesthesia Procedures Procedure/Date: 06/01/22 Nerve Block ^: Nerve Block 1: Main Anesthesia: general anesthesia Time Out Performed: Yes Consent: requested by attending/covering physician, from patient, risks and benefits reviewed and patient agrees to proceed Nerve block location: popliteal (R) Anesthesia monitors applied: pulse oximetry, EKG, BP cuff and oxygen Nerve block position: supine Anesthetic Used: ropivicaine 0.5% (30 ml) and with decadron (4 ml) Ultrasound used to: recognize landmarks Nerve Stimulator Used?: No Interscalene/Femoral BLK: 4 stimuplex 21 g needle used for position and inplane approach, visualize local anesthetic spread and no vascular puncture identified Injection: neg aspiration of heme Patient Tolerated Procedure: well Complications: none
[2022-06-01 08:04] VITALS: BP 131/74; PULSE 70; RESP 18; TEMP 36.2; O2SAT 93
[2022-06-01 08:09] VITALS: BP 140/102; PULSE 77; RESP 16; O2SAT 96
[2022-06-01 08:14] VITALS: BP 142/87; PULSE 74; RESP 16; TEMP 36.4; O2SAT 95
[2022-06-01 08:19] VITALS: BP 135/82; PULSE 64; RESP 16; TEMP 36.4; O2SAT 99
[2022-06-01 08:55] VITALS: BP 138/85; PULSE 65; RESP 16; O2SAT 99
--- NOTE | 2022-06-01 12:43 | ANE.PACU2 ---
Inpatient post-anesthesia follow up: Airway intact: Yes Vital signs: Temperature 97.5 F Pulse Rate 65 Respiratory Rate 16 Blood Pressure 138/85 Pulse Oximetry 99 Oxygen Delivery Me thod Room Air Oxygen Flow Rate Fraction of Inspir ed Oxygen Hydration adequate: Yes Nausea and vomiting: No Pain level: 1 Mental status: Baseline
== END 2022-06-01 09:08 | disposition home or self-care (01) ==
PROVIDERS: PCP Family Medicine; Visit Provider Podiatrist Foot & Ankle Surgery
PROC: (CPT 28118; principal; 2022-06-01 07:00)
DX: M92.61 Juvenile osteochondrosis of tarsus, right ankle (principal); I10 Essential (primary) hypertension; K21.9 Gastro-esophageal reflux disease without esophagitis
CPT/HCPCS: 28118; 73600; 76000; C9290; J0690; J1100; J2250; J2405; J2704; J2795; J3010; J3490; J7030

== ENCOUNTER → 2022-06-07 14:44 | Outpatient (BNVA) | payer OTHER, SELFPAY | PROVIDERS: PCP Family Medicine; Visit Provider Podiatrist Foot & Ankle Surgery | DX: Z98.890 Other specified postprocedural states (principal); M92.61 Juvenile osteochondrosis of tarsus, right ankle | CPT/HCPCS: 99024 ==

== ENCOUNTER 2022-06-09 06:00 | Outpatient (RCR) | payer OTHER, SELFPAY | END 2022-07-08 23:59 | disposition home or self-care (01) | LOC: SPT 06:00 | PROVIDERS: Visit Provider Podiatrist Foot & Ankle Surgery | DX: M76.61 Achilles tendinitis, right leg (principal) | CPT/HCPCS: 97035; 97110; 97140; 97161 ==

== ENCOUNTER → 2022-06-14 15:25 | Outpatient (BNVA) | payer OTHER, SELFPAY | PROVIDERS: PCP Family Medicine; Visit Provider Podiatrist Foot & Ankle Surgery | DX: Z98.890 Other specified postprocedural states (principal) | CPT/HCPCS: 99024 ==

== ENCOUNTER → 2022-06-28 15:19 | Outpatient (BNVA) | payer OTHER, SELFPAY | PROVIDERS: Visit Provider Podiatrist Foot & Ankle Surgery | DX: Z98.890 Other specified postprocedural states (principal) | CPT/HCPCS: 99024 ==

== ENCOUNTER 2022-07-09 06:00 | Outpatient (RCR) | payer OTHER, SELFPAY | END 2022-08-08 23:59 | disposition home or self-care (01) | LOC: SPT 06:00 | PROVIDERS: Visit Provider Podiatrist Foot & Ankle Surgery | DX: M76.61 Achilles tendinitis, right leg (principal) | CPT/HCPCS: 97035; 97110; 97140 ==

== ENCOUNTER → 2022-07-12 13:34 | Outpatient (BNVA) | payer OTHER, SELFPAY | PROVIDERS: Visit Provider Podiatrist Foot & Ankle Surgery | DX: Z98.890 Other specified postprocedural states (principal) | CPT/HCPCS: 73630; 99024 ==

== ENCOUNTER 2022-10-20 16:09 | Emergency (ER) | payer OTHER, SELFPAY ==
[2022-10-20 16:47] VITALS: BP 170/99; PULSE 74; RESP 16; TEMP 37.2; O2SAT 97; BMI 29.4
--- NOTE | 2022-10-20 17:09 | XRR_ITS ---
PROCEDURE INFORMATION: Exam: XR Cervical Spine Exam date and time: 10/20/2022 5:16 PM Age: 42 years old Clinical indication: Neck pain; Additional info: Pain no trauma TECHNIQUE: Imaging protocol: Radiologic exam of the cervical spine. Views: 2 or 3 views. COMPARISON: CR XR chest 1V portable [id number] 05/01/2020 8:04 PM FINDINGS: Bones/joints: Normal. No acute fracture. Normal alignment. Soft tissues: Unremarkable. XR/XR cervical spine 3V* [id number] IMPRESSION: No acute findings.
--- NOTE | 2022-10-20 17:32 | ED_ITS ---
HPI - Neck Pain/Injury General: Chief Complaint: Neck Pain/Injury Stated Complaint: neck pain Time Seen by Provider: 10/20/22 17:09 History of Present Illness: Presents ER with neck pain. Patient says have been increased neck pain for about the last week. But is gotten worse over the last several days. Patient did not know how he hurt his neck or if he did. Patient does not remember hurting it. He has not had neck pain like this before. The neck hurts mainly on the left side down into the trapezius region. Review of Systems General: Reports: 10 or more systems reviewed and unremarkable except in HPI and below PFSH ED PFSH: Medical History GERD (gastroesophageal reflux disease) Hypertension Muscle spasm Family History Family/Other CAD (coronary artery disease) Grandfather Heart failure Rheumatic fever Denies family history of Diabetes Stroke Social History Smoking and tobacco status: never smoked Alcohol intake: never Substance/Drug Use: never Lives independently: Yes Household members: spouse and children Marital status: Physical Exam Const: COMMON NORMALS: no acute distress, average body habitus, patient oriented x3, no limitations, healthy appearing, alert and well nourished HENMT: COMMON NORMALS: normocephalic, atraumatic, hearing grossly normal bilaterally, external ears normal, Normal external nose present and moist oral mucous membranes HEAD & SCALP: normocephalic and atraumatic NOSE: Normal external nose present EXTERNAL EAR: Yes external ears normal Neck/C-Spine: COMMON NORMALS: no JVD OTHER: Negative for cervical spine tenderness to palpation, positive to palpation tenderness over left paraspinal musculature and left trapezius region. Chest: COMMONS NORMALS: normal inspection of the chest and normal palpation of entire chest wall Resp: COMMON NORMALS: normal respiratory effort, No retractions, No use of accessory muscles and clear to auscultation bilaterally AUSCULTATION: clear to auscultation bilaterally Cardio: COMMON NORMALS: no JVD, regular rate, regular rhythm, S1 normal heart sound present, S2 normal heart sound present, No gallops present (Cardio), No clicks present (Cardio), No murmurs present (Cardio) and No rub (Cardio) RATE: regular rate RHYTHM: regular rhythm HEART SOUNDS: S1 normal heart sound present and S2 normal heart sound present GI: COMMON NORMALS: Normal to inspection, nondistended, normoactive bowel sounds present, Soft to palpation, non-tender, No hepatosplenomegaly present and no masses PALPATION: Yes Soft to palpation and Yes No hepatosplenomegaly present : COMMON NORMALS: Yes no CVA tenderness BLADDER/KIDNEY EXAM: Yes no CVA tenderness Back/Pelvis: COMMON NORMALS: no CVA tenderness Neuro: COMMON NORMALS: patient oriented x3 SENSORIUM/ORIENTATION: Yes alert Course Vital Signs: Vital signs: Vital Signs Temperature 98.9 F 10/20/22 16:47 Pulse Rate 74 10/20/22 16:47 Respiratory Rate 16 10/20/22 16:47 Blood Pressure 170/99 10/20/22 16:47 Pulse Oximetry 97 10/20/22 16:47 Oxygen Delivery Me thod Room Air 10/20/22 16:47 MDM - Neck Pain/Injury Medical Decision Making Patient presented ER with nontraumatic neck pain worse on his left side. Physical exam was performed this showed it is probably a left parasp inal/trapezius muscle spasm causing this discomfort. X-ray was obtained which was negative. Patient was given Toradol and Norflex IM in the ER. These relieve much of the patient's symptoms. Patient be discharged home on Mobic and Flexeril and is to follow-up with his PCP in the next 7 to 10 days. Differential Diagnosis Likely strain of neck muscle; Unlikely disc disorder of cervical region, whiplash injury to neck, closed subluxation of cervical spine, fracture of cervical spine without lesion of spinal cord, cervical radiculopathy, vertebral artery dissection, torticollis or cervical spondylosis Medical Records I reviewed the patient's medical records. Lab Data I reviewed the patient's lab results. Radiology Impressions Cervical Spine X-Ray 10/20/22 17:09 IMPRESSION: No acute findings. Discharge Plan Discharge Patient Disposition: Home Clinical Impression: Acute neck pain Condition: Stable Prescriptions: New cyclobenzaprine 5 mg tablet 5 mg PO TID PRN (Reason: muscle spasm) Qty: 14 0RF meloxicam 15 mg tablet 15 mg PO DAILY Qty: 14 0RF No Action tizanidine 4 mg capsule 4 mg PO BID PRN (Reason: Back Pain) omeprazole 20 mg capsule,delayed release(DR/EC) 20 mg PO DAILY (DME) Custom Molded Orthotics See Rx Instructions .Route .MEDSUPPLY Qty: 1 0RF Rx Instructions: As directed, to be custom made by [facility] Physical Therapy Department I am requesting authorization to perform molds of his feet in podiatry clinic at [facility] and for custom orthotics to be manufactured through [facility] physical therapy department to treat plantar fasciitis bilaterally on this patient. Would require authorization for custom molded orthotics L code 3030 and dispensing through physical therapy CPT code 00016 calcipotriene 0.005 % cream 1 applic topical BID Qty: 120 1RF Rx Instructions: rub in gently and completely prn to affected areas. May use on face clobetasol 0.05 % ointment 1 applic topical BID 14 Days Qty: 60 1RF Rx Instructions: to affected areas on knees no more than 2 wks/mo prn alternating with triamcinolone triamcinolone acetonide 0.1 % ointment 1 applic topical BID Qty: 80 2RF Rx Instructions: to knees BID alt. with clobetasol as needed for flares no more than 2 wks/mo prednisone 20 mg tablet 20 mg PO DAILY 5 Days Qty: 10 0RF meloxicam 7.5 mg tablet 7.5 mg PO DAILY PRN (Reason: right foot pain) Qty: 30 0RF ciclopirox 8 % solution 1 applic topical DAILY 28 Days Qty: 6.6 0RF Discharge Orders: Discharge ED (Routine); Ordered 10/20/22 Ordered By: Rocky Sharp Referrals: Madeleine Khan MD [Primary Care Provider] - 7-10 days Patient Instructions: Acute Neck Pain (ED) Activity Restrictions/Additional Instructions: Please take your prescriptions as directed as needed. Please follow-up with your primary care doctor in the next 7 to 10 days as needed if your pain gets uncontrollable please return to the ER for further evaluation and treatment. Coding Level of Care Code ED Router Operator Radial for Kev Jacobson
[2022-10-20] MEDS: ketorolac 60 mg/2 mL INJ IM (17:45)
[2022-10-20] MEDS: orphenadrine 30 mg/mL Inj 2 mL 60 MG IM (17:45)
[2022-10-20 18:07] VITALS: BP 152/110; PULSE 76; RESP 16; O2SAT 96
== END 2022-10-20 18:08 | disposition home or self-care (01) ==
PROVIDERS: Emergency Provider Emergency Medicine; PCP Family Medicine
DX: M54.2 Cervicalgia (principal); I10 Essential (primary) hypertension
CPT/HCPCS: 72040; 96372; 99284; J1885; J2360

== ENCOUNTER 2022-10-22 15:23 | Outpatient (CLI) | payer OTHER, SELFPAY | END 2022-10-22 15:24 | disposition home or self-care (01) | LOC: SPT 15:23 | PROVIDERS: PCP Family Medicine; Visit Provider Podiatrist Foot & Ankle Surgery | DX: Z46.89 Encounter for fitting and adjustment of other specified devices (principal); M76.71 Peroneal tendinitis, right leg | CPT/HCPCS: 97760; 99213; L1902 ==

== ENCOUNTER → 2022-10-31 09:44 | Outpatient (BNVA) | payer OTHER, SELFPAY | PROVIDERS: PCP Family Medicine; Visit Provider Podiatrist Foot & Ankle Surgery | DX: Z98.890 Other specified postprocedural states (principal); G57.61 Lesion of plantar nerve, right lower limb; G57.81 Other specified mononeuropathies of right lower limb | CPT/HCPCS: 73630; 99213 ==

== ENCOUNTER 2022-11-09 14:13 | Outpatient (CLI) | payer OTHER, SELFPAY ==
--- NOTE | 2022-11-09 14:30 | US_ITS ---
WS: [id number] ULTRASOUND SOFT TISSUES RIGHT foot. HISTORY: to rule out masters's neuroma to 2nd 3rd interspace right ft COMPARISON: None available. TECHNIQUE: 2-D and color Doppler imaging is submitted. Ultrasound directed between the second and third intertarsal space. There is no soft tissue mass. No hypoechoic mass or fluid is identified. IMPRESSION: No Masters's neuroma and there is identified between the second and third intertarsal space.
== END 2022-11-09 14:14 | disposition home or self-care (01) ==
PROVIDERS: PCP Family Medicine; Visit Provider Podiatrist Foot & Ankle Surgery
DX: G57.61 Lesion of plantar nerve, right lower limb (principal); G57.81 Other specified mononeuropathies of right lower limb; M79.671 Pain in right foot
CPT/HCPCS: 76882

== ENCOUNTER → 2022-12-03 14:01 | Outpatient (BNVA) | payer OTHER, SELFPAY | PROVIDERS: PCP Family Medicine; Visit Provider Podiatrist Foot & Ankle Surgery | DX: B35.1 Tinea unguium (principal); M77.41 Metatarsalgia, right foot | CPT/HCPCS: 99213 ==

== ENCOUNTER → 2022-12-11 09:55 | Outpatient (BNVA) | payer OTHER, SELFPAY | PROVIDERS: PCP Family Medicine; Visit Provider Nurse Practitioner Family | DX: L40.0 Psoriasis vulgaris (principal); D22.62 Melanocytic nevi of left upper limb, including shoulder; L57.8 Other skin changes due to chronic exposure to nonionizing radiation | CPT/HCPCS: 99214 ==

== ENCOUNTER → 2023-01-21 15:55 | Outpatient (BNVA) | payer OTHER, SELFPAY | PROVIDERS: PCP Family Medicine; Visit Provider Podiatrist Foot & Ankle Surgery | DX: B35.1 Tinea unguium (principal); Z79.899 Other long term (current) drug therapy; M77.41 Metatarsalgia, right foot | CPT/HCPCS: 36415; 80053; 99213 ==

== ENCOUNTER → 2023-02-18 16:20 | Outpatient (BNVA) | payer OTHER, SELFPAY | PROVIDERS: PCP Family Medicine; Visit Provider Podiatrist Foot & Ankle Surgery | DX: B35.1 Tinea unguium (principal); L60.8 Other nail disorders | CPT/HCPCS: 36415; 80053; 99213 ==

== ENCOUNTER 2023-02-20 11:56 | Emergency (ER) | payer OTHER, SELFPAY ==
[2023-02-20 12:16] VITALS: BP 145/92; PULSE 87; RESP 16; TEMP 36.6; O2SAT 100; BMI 29.2
[2023-02-20 12:20] LABS: Basophils # 0.1 10^3/uL (0.0-0.1); Basophils % 0.8 %; Eosinophils # 0.1 10^3/uL (0.0-0.8); Eosinophils % 0.9 %; Hematocrit 41.3 % (37-53); Lymphocytes # 2.6 10^3/uL (0.8-4.8); Lymphocytes % 40.2 %; Mean Corpuscular HGB Conc 33.9 g/dL (30-55); Mean Corpuscular Hemoglobin 30.4 pg (27-33); Mean Corpuscular Volume 89.8 fl (82-101); Monocytes # 0.5 10^3/uL (0.2-0.9); Monocytes % 8.2 %; Neutrophils # 3.17 10^3/uL (1.8-7.7); Neutrophils % 49.7 %; Nucleated Red Blood Cells % 0 %; Platelet Count 290 10^3/cmm (157-399); Red Cell Distribution Width 13.2 % (12.1-15.1); White Blood Count 6.37 10^3/uL (3.29-11.43)
[2023-02-20 12:47] LABS: Alanine Aminotransferase 29 U/L (0-41); Albumin Level 4.6 g/dL (3.5-5.2); Alkaline Phosphatase 80 U/L (40-130); Anion Gap 14.1 (5-19); Aspartate Amino Transferase 19 U/L (0-40); Blood Urea Nitrogen 10 mg/dL (6-20); Calcium 9.9 mg/dL (8.5-10.5); Carbon Dioxide 26 mmol/L (22-29); Chloride 95 mmol/L (98-107); Globulin 3.4 g/dL (1.3-4.6); Glomerular Filtration Rate 73.1 mL/min (90-130); Glucose 95 mg/dL (65-115); Lipase 32 U/L (13-60); Osmolality Calculated 271 mOsm/kg (285-295); Potassium 4.1 mmol/L (3.5-5.1); Sodium 131 mmol/L (136-145); Total Bilirubin 0.3 mg/dL (0.15-1.2)
--- NOTE | 2023-02-20 13:31 | W.ED.ABDPA2 ---
HPI - Abdominal Pain General: Chief Complaint: Abdominal Pain Stated Complaint: abd pain,N,constipation Time Seen by Provider: 02/20/23 13:27 Source: patient Mode of arrival: ambulatory History of Present Illness: 43-year-old male presents emergency room with complaint of constipation for the last month. He had a bowel movement a week ago after he used an enema. He has tried some MiraLAX with minimal relief. He denies any hematochezia melena hematemesis coffee-ground emesis no previous colonoscopy no dysuria urgency or frequency no vomiting no severe abdominal pain at this time. MD elicited complaint: abdominal pain Pertinent past history: constipation Onset (ago): month(s) (1) Associated Symptoms: Reports constipation and GI cramping; Denies anorexia, belching, bloating, change in bowel habits, change in stool character, chills, coffee ground emesis, diarrhea, dyspepsia, dysuria, excessive flatus, fever(s), heartburn, hematochezia, hematuria, hematemesis, fecal incontinence, loose stools, melena, nausea, poor appetite, syncope and vomiting Review of Systems Const: Denies: fever(s) or chills Card: Denies: chest pain or syncope Resp: Denies: dyspnea GI: Reports: constipation and GI cramping; Denies: abdominal pain, nausea, vomiting, hematemesis, coffee ground emesis, heartburn, diarrhea, bloating, belching, excessive flatus, fecal incontinence, change in bowel habits, change in stool character, hematochezia or melena : Denies: dysuria, urinary frequency, urinary urgency or hematuria Musc: Denies: neck pain or back pain Skin/Breast: Denies: rash PFSH ED PFSH: Medical History Hypertension GERD (gastroesophageal reflux disease) Muscle spasm Family History Family/Other CAD (coronary artery disease) Grandfather Heart failure Rheumatic fever Denies family history of Diabetes Stroke Social History Smoking and tobacco/nicotine status: never used tobacco/nicotine Alcohol intake: never Substance/Drug Use: never Lives independently: Yes Household members: spouse and children Marital status: Physical Exam Const: COMMON NORMALS: healthy appearing GENERAL APPEARANCE: cooperative and comfortable ORIENTATION/CONSCIOUSNESS: Yes awake, Yes oriented to person, Yes oriented to place and Yes oriented to time HENMT: COMMON NORMALS: normocephalic, atraumatic and hearing grossly normal bilaterally HEAD & SCALP: normocephalic and atraumatic Resp: COMMON NORMALS: normal respiratory effort, No retractions, No use of accessory muscles and clear to auscultation bilaterally AUSCULTATION: clear to auscultation bilaterally Cardio: COMMON NORMALS: regular rate, regular rhythm and No murmurs present (Cardio) RATE: regular rate RHYTHM: regular rhythm GI: COMMON NORMALS: Soft to palpation and No hepatosplenomegaly present AUSCULTATION: Yes normoactive bowel sounds PALPATION: Yes Soft to palpation, No Tenderness to palpation present (GI), No Guarding due to palpation present (GI) and Yes No hepatosplenomegaly present Extremity: COMMON NORMALS: normal to inspection, capillary refill normal, no clubbing, cyanosis or edema, no calf tenderness and no pedal edema Neuro: SENSORIUM/ORIENTATION: Yes oriented to person, Yes oriented to place and Yes oriented to time Skin: COMMON NORMALS: no rashes or lesions noted GENERAL SKIN EXAM: no rashes or lesions noted Course Vital Signs: Vital signs: Vital Signs Temperature 97.8 F 02/20/23 12:16 Pulse Rate 87 02/20/23 12:16 Respiratory Rate 16 02/20/23 12:16 Blood Pressure 145/92 02/20/23 12:16 Pulse Oximetry 100 02/20/23 12:16 MDM - Abdominal Pain Medical Decision Making Benign abdominal exam no significant finding on acute abdominal series other than constipation laboratory test normal. Discharge patient home lactulose every 2 hours till desired results achieved Medical Records I reviewed the patient's medical records. Lab Data I reviewed the patient's lab results. 02/20/23 12:15 02/20/23 12:15 Labs/Radiology: Laboratory Results WBC 6.37 10^3/uL (3.29-11.43) 02/20/23 12:15 RBC 4.60 10^6/uL (3.85-5.65) 02/20/23 12:15 Hgb 14.00 g/dL (11.27-16.99) 02/20/23 12:15 Hct 41.3 % (37-53) 02/20/23 12:15 MCV 89.8 fl (82-101) 02/20/23 12:15 MCH 30.4 pg (27-33) 02/20/23 12:15 MCHC 33.9 g/dL (30-55) 02/20/23 12:15 RDW 13.2 % (12.1-15.1) 02/20/23 12:15 Plt Count 290 10^3/cmm (157-399) 02/20/23 12:15 MPV 9.0 fL (7.4-10.4) 02/20/23 12:15 Neut % (Auto) 49.7 % 02/20/23 12:15 Lymph % (Auto) 40.2 % 02/20/23 12:15 Barbour % (Auto) 8.2 % 02/20/23 12:15 Eos % (Auto) 0.9 % 02/20/23 12:15 Baso % (Auto) 0.8 % 02/20/23 12:15 Neut # (Auto) 3.17 10^3/uL (1.8-7.7) 02/20/23 12:15 Lymph # (Auto) 2.6 10^3/uL (0.8-4.8) 02/20/23 12:15 Barbour # (Auto) 0.5 10^3/uL (0.2-0.9) 02/20/23 12:15 Eos # (Auto) 0.1 10^3/uL (0.0-0.8) 02/20/23 12:15 Baso # (Auto) 0.1 10^3/uL (0.0-0.1) 02/20/23 12:15 Nucleated RBC % (auto) 0 % 02/20/23 12:15 Nucleated RBCs # 0.0 /100WBC 02/20/23 12:15 Sodium 131 mmol/L (136-145) L 02/20/23 12:15 Potassium 4.1 mmol/L (3.5-5.1) 02/20/23 12:15 Chloride 95 mmol/L (98-107) L 02/20/23 12:15 Carbon Dioxide 26 mmol/L (22-29) 02/20/23 12:15 Anion Gap 14.1 (5-19) 02/20/23 12:15 BUN 10 mg/dL (6-20) 02/20/23 12:15 Creatinine 1.1 mg/dL (0.7-1.2) 02/20/23 12:15 GFR Calculation 73.1 mL/min (90-130) L 02/20/23 12:15 Glucose 95 mg/dL (65-115) 02/20/23 12:15 Calculated Osmolality 271 mOsm/kg (285-295) L 02/20/23 12:15 Calcium 9.9 mg/dL (8.5-10.5) 02/20/23 12:15 Total Bilirubin 0.3 mg/dL (0.15-1.2) 02/20/23 12:15 AST 19 U/L (0-40) 02/20/23 12:15 ALT 29 U/L (0-41) 02/20/23 12:15 Alkaline Phosphatase 80 U/L (40-130) 02/20/23 12:15 Total Protein 8.0 g/dL (6.6-8.7) 02/20/23 12:15 Albumin 4.6 g/dL (3.5-5.2) 02/20/23 12:15 Globulin 3.4 g/dL (1.3-4.6) 02/20/23 12:15 Lipase 32 U/L (13-60) 02/20/23 12:15 All radiology interpretation(s) finalized by discharge Discharge Plan Discharge Patient Disposition: Home Clinical Impression: Constipation Condition: Stable Prescriptions: New lactulose 20 gram/30 mL solution 30 g PO Q2H 1 Days Qty: 540 0RF Rx Instructions: until desired laxative effect No Action tizanidine 4 mg capsule 4 mg PO BID PRN (Reason: Back Pain) omeprazole 20 mg capsule,delayed release(DR/EC) 20 mg PO DAILY (DME) Custom Molded Orthotics See Rx Instructions .Route .MEDSUPPLY Qty: 1 0RF Rx Instructions: As directed, to be custom made by [facility] Physical Therapy Department I am requesting authorization to perform molds of his feet in podiatry clinic at [facility] and for custom orthotics to be manufactured through [facility] physical therapy department to treat plantar fasciitis bilaterally on this patient. Would require authorization for custom molded orthotics L code 3030 and dispensing through physical therapy CPT code 44830 calcipotriene 0.005 % cream 1 applic topical BID Qty: 120 1RF Rx Instructions: rub in gently and completely prn to affected areas. May use on face triamcinolone acetonide 0.1 % ointment 1 applic topical BID Qty: 80 2RF Rx Instructions: to knees BID alt. with clobetasol as needed for flares no more than 2 wks/mo clomipramine 25 mg capsule 25 mg PO QPM ciclopirox 8 % solution 1 applic topical DAILY 28 Days Qty: 6.6 0RF (DME) Supinator See Rx Instructions .Route .MEDSUPPLY Qty: 1 0RF Rx Instructions: As directed naproxen 500 mg tablet 500 mg PO BID 30 Days Qty: 60 2RF terbinafine HCl 250 mg tablet 250 mg PO DAILY 90 Days Qty: 30 2RF clobetasol 0.05 % ointment 1 applic topical BID 14 Days Qty: 60 1RF Rx Instructions: to affected areas on knees no more than 2 wks/mo prn alternating with triamcinolone Fish Oil 120 mg-180 mg- 60 mg-1,200 mg Capsule,Delayed Release(Dr/Ec) 1 cap PO BID Discharge Orders: Discharge ED (Routine); Ordered 02/20/23 Ordered By: Jordi Castano Referrals: Madeleine Khan MD [Primary Care Provider] - Discharge Diet: Usual diet Discharge Activity: Resume usual activity Patient Instructions: Constipation (ED), Opioid Safety, Pain Management Coding Level of Care Code ED Cpr Ambulance Driver for Kev Jacobson
--- NOTE | 2023-02-20 13:32 | XR_ITS ---
WS: [id number] Exam: XR acute abdomen series [id number] Date/Time of Exam: 02/20/2023 1:34 PM Reason For Exam: abd pain AP portable chest x-ray compared to prior study 05/01/2020. The lungs are fully expanded and clear. Normal cardiomediastinal silhouette. Postoperative change of the distal LEFT clavicle. RIGHT AC joint separation. IMPRESSION: 1. No acute cardiopulmonary process. Flat and erect abdomen. No bowel obstruction or free air. Significant amount retained stool throughou t the colon. No sign of organ enlargement. Bony structures are intact. IMPRESSION: 1. Constipation. No acute abdominal finding.
[2023-02-20 14:21] VITALS: BP 147/112; PULSE 90; O2SAT 98
[2023-02-20 15:00] VITALS: BP 146/99; PULSE 78; O2SAT 99
== END 2023-02-20 15:40 | disposition home or self-care (01) ==
PROVIDERS: Emergency Medicine; Emergency Provider Family Medicine; PCP Family Medicine
DX: K59.00 Constipation, unspecified (principal); I10 Essential (primary) hypertension
CPT/HCPCS: 36415; 74022; 80053; 83690; 85025; 99284

== ENCOUNTER 2023-03-28 13:02 | Outpatient (CLI) | payer OTHER, SELFPAY ==
--- NOTE | 2023-03-28 13:06 | CT_ITS ---
WS: [id number] CT ABDOMEN AND PELVIS NONCONTRAST HISTORY: CONSTIPATION L SIDED ABD PAIN TECHNIQUE: Imaging performed through the abdomen and pelvis. Coronal and sagittal reformats are submi tted. All CT scans at [facility] use at least one of these dose optimization techniques: auto mated exposure control; mA and/or kV adjustment per patient size (includes targeted exams where dose is matched to clinical indication); or iterative reconstruction. DLP: 568.74 mGy.cm COMPARISON: 08/24/2016 Lower thorax: Benign granuloma RIGHT lower lung field. Liver: Normal size liver. No mass or bile duct dilatation. Gallbladder: Normal gallbladder. No pericholecystic fluid or cholelithiasis. No gallbladder wall thic kening. Pancreas: Normal size and attenuation. Normal pancreatic duct. No pancreatitis or mass. Spleen: Normal. Adrenal glands: Mild nodularity and fullness involving the LEFT adrenal gland similar to 2017. Normal RIGHT adrenal gland. Right kidney: Normal size kidney with no mass or hydronephrosis. Left kidney: Normal size kidney with no mass or hydronephrosis. Aorta: Normal abdominal aorta, no aneurysm or atherosclerosis. No free fluid, intraperitoneal air or significant lymphadenopathy. GI tract: Mildly distended stomach with oral contrast. No small bowel obstruction. Prior appendectomy . There is mild diffuse colonic dilatation with solid fecal material. No evidence for wall thickening or pericolonic inflammation. No diverticulosis. Abdominal wall: Small umbilical hernia contains fat only. Pelvis: No free fluid or adenopathy. Negative urinary bladder. Fat-containing patent LEFT inguinal ca nal. Osseous structures: Unremarkable. IMPRESSION: 1. Moderate diffuse constipation with no obstruction. 2. Prior appendectomy. 3. No GI tract obstruction. 4. No adenopathy or ascites.
[2023-03-28] MEDS: iohexol 350 mg/mL 500 mL Btl (per mL) PO (13:46)
== END 2023-03-28 13:03 | disposition home or self-care (01) ==
LOC: RAD 13:03
PROVIDERS: PCP Family Medicine; Visit Provider Family Medicine
DX: K59.00 Constipation, unspecified (principal); Z90.89 Acquired absence of other organs
CPT/HCPCS: 74176; Q9967

== ENCOUNTER 2023-06-18 15:39 | Emergency (ER) | payer OTHER, SELFPAY ==
--- NOTE | 2023-06-18 15:40 | XRR_ITS ---
PROCEDURE INFORMATION: Exam: XR Right Shoulder Exam date and time: 06/18/2023 3:54 PM Age: 43 years old Clinical indication: Pain; Shoulder; Right; Patient HX: No known trauma TECHNIQUE: Imaging protocol: Radiologic exam of the right shoulder. Views: 2 or more views. COMPARISON: US soft tissue/extremity [id number] 11/09/2022 2:51 PM FINDINGS: Bones/joints: Normal. Soft tissues: Normal. XR/XR shoulder RT min 2V* [id number] IMPRESSION: No acute findings.
[2023-06-18 15:42] VITALS: BP 135/88; PULSE 106; RESP 16; TEMP 36.7; O2SAT 99
[2023-06-18] MEDS: dexamethasone 10 mg/mL INJ 8 MG IM (15:58)
[2023-06-18] MEDS: ketorolac 60 mg/2 mL INJ IM (16:00)
[2023-06-18] MEDS: orphenadrine 30 mg/mL Inj 2 mL 60 MG IM (16:01)
--- NOTE | 2023-06-18 16:16 | W.ED.EXTPRO ---
Documented by User: [email or web address] Russo 06/18/23 16:41 HPI - Extremity Problem General: Chief complaint: Extremity Injury, Upper Stated complaint: right shoulder pain Time Seen by Provider: 06/18/23 15:40 Source: patient Mode of arrival: ambulatory Limitations: no limitations History of Present Illness: This patient is a 43-year-old male presenting to the emergency department complaining of right shoulder pain onset for the past 2 weeks. 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 He notes that he has subluxed at the shoulder before, however has no history of rotator cuff injury or surgery. He states his thought that his right shoulder was hanging lower than his left, however he denies noticing this. He notes that he has limited range of motion due to the pain at the shoulder. Nothing he has tried has relieved his pain. He does note some radiation down the lateral aspect of his right arm. No complaints of neck pain or elbow pain. No other symptoms reported at this time. MD Complaint: joint pain (Shoulder) Onset (ago): week(s) Pain Consistency: constant Location: right Radiation: distal Relieving factors: nothing Exacerbating factors: range of motion Associated symptoms: Reports no associated symptoms; Deny chest pain, fever(s) or rash Review of Systems General: Reports: 10 or more systems reviewed and unremarkable except in HPI and below Const: Denies: fever(s), chills or fatigue Eyes: Denies: change in vision ENMT: Denies: throat pain, ear or mastoid pain or nasal discharge Card: Denies: chest pain, palpitations, swelling of feet/ankles or lightheadedness Resp: Denies: dyspnea, productive cough or wheezing GI: Denies: abdominal pain, nausea, vomiting, diarrhea or constipation : Denies: flank pain, difficulty urinating, dysuria or urinary frequency Musc: Reports: joint pain (R shoulder); Denies: neck pain or back pain Skin/Breast: Denies: rash Neuro: Denies: headache(s), numbness in extremities or weakness in extremities PFS ED PFSH: Medical History Hypertension GERD (gastroesophageal reflux disease) Muscle spasm Family History Family/Other CAD (coronary artery disease) Grandfather Heart failure Rheumatic fever Denies family history of Diabetes Stroke Social History Smoking and tobacco/nicotine status: never used tobacco/nicotine Alcohol intake: never Substance/Drug Use: never Lives independently: Yes Household members: spouse and children Marital status: Physical Exam Const: COMMON NORMALS: no acute distress, patient oriented x3 and no limitations GENERAL APPEARANCE: cooperative, comfortable and well developed ORIENTATION/CONSCIOUSNESS: Yes awake, Yes oriented to person, Yes oriented to place and Yes oriented to time HENMT: COMMON NORMALS: normocephalic, atraumatic and hearing grossly normal bilaterally HEAD & SCALP: normocephalic and atraumatic Eye: COMMON NORMALS: Equal, round and reactive pupils present, EOMs intact bilaterally and conjunctivae normal CONJUNCTIVA: Yes conjunctivae normal PUPIL: Yes Equal, round and reactive pupils present Neck/C-Spine: COMMON NORMALS: full ROM, supple and no JVD Resp: COMMON NORMALS: normal respiratory effort, No retractions, No use of accessory muscles and clear to auscultation bilaterally AUSCULTATION: clear to auscultation bilaterally Cardio: COMMON NORMALS: no JVD, regular rate, regular rhythm, No clicks present (Cardio), No murmurs present (Cardio) and No rub (Cardio) RATE: regular rate RHYTHM: regular rhythm Extremity: NARRATIVE EXTREMITY EXAM: Right shoulder joint is nontender to palpation. There is severe limited range of motion due to pain reported. No obvious signs of deformity or bruising. No signs of trauma. Special testing of the shoulder unable to be assessed due to his limited range of motion. Normal elbow exam. Normal cervical neck exam. Neuro: COMMON NORMALS: patient oriented x3, moves all extremities, no focal motor deficits and no sensory deficits noted SENSORIUM/ORIENTATION: Yes oriented to person, Yes oriented to place and Yes oriented to time Psych: COMMON NORMALS: mental status grossly normal and Normal thought process present THOUGHT PROCESS: Normal thought process present Skin: COMMON NORMALS: no rashes or lesions noted GENERAL SKIN EXAM: no rashes or lesions noted Course Vital Signs: Vital signs: Vital Signs Temperature 98.0 F 06/18/23 15:42 Pulse Rate 106 H 06/18/23 15:42 Respiratory Rate 16 06/18/23 15:42 Blood Pressure 135/88 06/18/23 15:42 Pulse Oximetry 99 06/18/23 15:42 MDM - Extremity (Nontraumatic) Medical Decision Making This patient was seen and evaluated in the emergency department due to right shoulder pain. Patient notes pain began 2 weeks ago however he exacerbated it a few days ago while eating. No prior injuries to the shoulder. On arrival patient's vitals normal and have remained stable throughout ED course. Exam remarkable for some limited range of motion as well as pain associated with range of motion in all cevallos of the right shoulder. There were no obvious signs of dislocation or other deformities. X-ray of the right shoulder showed no acute findings. I did give the patient shots of Toradol, steroid, as well as a muscle relaxer. Upon recheck he notes minimal improvement, however I informed him that he needs to follow-up with primary care for potential MRI to evaluate for ligamentous injury or tendinopathy. He agrees with this plan and will follow-up this week. I informed him to treat conservatively in the meantime with alternating Tylenol and ibuprofen, as well as ice for added relief and gentle range of motion as tolerated. Return precautions given. Lab Data Radiology Impressions Shoulder X-Ray 06/18/23 15:40 IMPRESSION: No acute findings. All radiology interpretation(s) finalized by discharge Discharge Plan Discharge Patient Disposition: Home Clinical Impression: Right shoulder strain Qualifiers: Encounter type: initial encounter Qualified Code(s): S46.911A - Strain of unspecified muscle, fascia and tendon at shoulder and upper arm level, right arm, initial encounter Condition: Stable Prescriptions: No Action tizanidine 4 mg capsule 4 mg PO BID PRN (Reason: Back Pain) omeprazole 20 mg capsule,delayed release(DR/EC) 20 mg PO DAILY (DME) Custom Molded Orthotics See Rx Instructions .Route .[facility] Qty: 1 0RF Rx Instructions: As directed, to be custom made by [facility] Physical Therapy Department I am requesting authorization to perform molds of his feet in podiatry clinic at [facility] and for custom orthotics to be manufactured through [facility] physical therapy department to treat plantar fasciitis bilaterally on this patient. Would require authorization for custom molded orthotics L code 3030 and dispensing through physical therapy CPT code 79704 calcipotriene 0.005 % cream 1 applic topical BID Qty: 120 1RF Rx Instructions: rub in gently and completely prn to affected areas. May use on face triamcinolone acetonide 0.1 % ointment 1 applic topical BID Qty: 80 2RF Rx Instructions: to knees BID alt. with clobetasol as needed for flares no more than 2 wks/mo clomipramine 25 mg capsule 25 mg PO QPM ciclopirox 8 % solution 1 applic topical DAILY 28 Days Qty: 6.6 0RF (DME) Supinator See Rx Instructions .Route .MEDSUPPLY Qty: 1 0RF Rx Instructions: As directed naproxen 500 mg tablet 500 mg PO BID 30 Days Qty: 60 2RF terbinafine HCl 250 mg tablet 250 mg PO DAILY 90 Days Qty: 30 2RF clobetasol 0.05 % ointment 1 applic topical BID 14 Days Qty: 60 1RF Rx Instructions: to affected areas on knees no more than 2 wks/mo prn alternating with triamcinolone Fish Oil 120 mg-180 mg- 60 mg-1,200 mg Capsule,Delayed Release(Dr/Ec) 1 cap PO BID Discharge Orders: Discharge ED (Routine); Ordered 06/18/23 Ordered By: Jean Todd Referrals: Madeleine Khan MD [Primary Care Provider] - Discharge Diet: Usual diet Discharge Activity: Increase activity as tolerated Patient Instructions: Shoulder Sprain (ED) Activity Restrictions/Additional Instructions: Tylenol and ibuprofen as needed. Ice for added relief. Please follow-up with primary care for further imaging as discussed. Return if you develop any new or concerning symptoms. Gentle range of motion exercises as tolerated. Coding Level of Care Code ED Program Officer for [facility] Documented by User: Jordi Castano DO 06/19/23 05:57 HPI - Extremity Problem General: Chief complaint: Extremity Injury, Upper Stated complaint: right shoulder pain Time Seen by Provider: 06/18/23 15:40 [facility] ED PFSH: Medical History Hypertension GERD (gastroesophageal reflux disease) Muscle spasm Family History Family/Other CAD (coronary artery disease) Grandfather Heart failure Rheumatic fever Denies family history of Diabetes Stroke Social History Smoking and tobacco/nicotine status: never used tobacco/nicotine Alcohol intake: never Substance/Drug Use: never Lives independently: Yes Household members: spouse and children Marital status: Course Vital Signs: Vital signs: Vital Signs Temperature 98.0 F 06/18/23 15:42 Pulse Rate 106 H 06/18/23 15:42 Respiratory Rate 16 06/18/23 15:42 Blood Pressure 135/88 06/18/23 15:42 Pulse Oximetry 99 06/18/23 15:42 MDM - Extremity (Nontraumatic) Medical Decision Making This patient was seen and evaluated in the emergency department due to right shoulder pain. Patient notes pain began 2 weeks ago however he exacerbated it a few days ago while eating. No prior injuries to the shoulder. On arrival patient's vitals normal and have remained stable throughout ED course. Exam remarkable for some limited range of motion as well as pain associated with range of motion in all cevallos of the right shoulder. There were no obvious signs of dislocation or other deformities. X-ray of the right shoulder showed no acute findings. I did give the patient shots of Toradol, steroid, as well as a muscle relaxer. Upon recheck he notes minimal improvement, however I informed him that he needs to follow-up with primary care for potential MRI to evaluate for ligamentous injury or tendinopathy. He agrees with this plan and will follow-up this week. I informed him to treat conservatively in the meantime with alternating Tylenol and ibuprofen, as well as ice for added relief and gentle range of motion as tolerated. Return precautions given. Chart reviewed Lab Data Radiology Impressions Shoulder X-Ray 06/18/23 15:40 IMPRESSION: No acute findings. Discharge Plan Discharge Patient Disposition: Home Clinical Impression: Right shoulder strain Qualifiers: Encounter type: initial encounter Qualified Code(s): S46.911A - Strain of unspecified muscle, fascia and tendon at shoulder and upper arm level, right arm, initial encounter Condition: Stable Prescriptions: No Action tizanidine 4 mg capsule 4 mg PO BID PRN (Reason: Back Pain) omeprazole 20 mg capsule,delayed release(DR/EC) 20 mg PO DAILY (DME) Custom Molded Orthotics See Rx Instructions .Route .MEDSUPPLY Qty: 1 0RF Rx Instructions: As directed, to be custom made by [facility] Physical Therapy Department I am requesting authorization to perform molds of his feet in podiatry clinic at [facility] and for custom orthotics to be manufactured through [facility] physical therapy department to treat plantar fasciitis bilaterally on this patient. Would require authorization for custom molded orthotics L code 3030 and dispensing through physical therapy CPT code 65676 calcipotriene 0.005 % cream 1 applic topical BID Qty: 120 1RF Rx Instructions: rub in gently and completely prn to affected areas. May use on face triamcinolone acetonide 0.1 % ointment 1 applic topical BID Qty: 80 2RF Rx Instructions: to knees BID alt. with clobetasol as needed for flares no more than 2 wks/mo clomipramine 25 mg capsule 25 mg PO QPM ciclopirox 8 % solution 1 applic topical DAILY 28 Days Qty: 6.6 0RF (DME) Supinator See Rx Instructions .Route .MEDSUPPLY Qty: 1 0RF Rx Instructions: As directed naproxen 500 mg tablet 500 mg PO BID 30 Days Qty: 60 2RF terbinafine HCl 250 mg tablet 250 mg PO DAILY 90 Days Qty: 30 2RF clobetasol 0.05 % ointment 1 applic topical BID 14 Days Qty: 60 1RF Rx Instructions: to affected areas on knees no more than 2 wks/mo prn alternating with triamcinolone Fish Oil 120 mg-180 mg- 60 mg-1,200 mg Capsule,Delayed Release(Dr/Ec) 1 cap PO BID Discharge Orders: Discharge ED (Routine); Ordered 06/18/23 Ordered By: Jean Todd Referrals: Madeleine Khan MD [Primary Care Provider] - Discharge Diet: Usual diet Discharge Activity: Increase activity as tolerated Patient Instructions: Shoulder Sprain (ED) Activity Restrictions/Additional Instructions: Tylenol and ibuprofen as needed. Ice for added relief. Please follow-up with primary care for further imaging as discussed. Return if you develop any new or concerning symptoms. Gentle range of motion exercises as tolerated. Coding Level of Care Code ED Program Officer for Kev Jacobson
== END 2023-06-18 16:40 | disposition home or self-care (01) ==
PROVIDERS: Emergency Provider Physician Assistant; PCP Family Medicine
DX: S46.911A Strain of unspecified muscle, fascia and tendon at shoulder and upper arm level, right arm, initial encounter (principal); I10 Essential (primary) hypertension; X50.9XXA Other and unspecified overexertion or strenuous movements or postures, initial encounter; Y93.H2 Activity, gardening and landscaping
CPT/HCPCS: 73030; 96372; 99284; J1100; J1885; J2360

== ENCOUNTER → 2023-07-02 15:23 | Outpatient (BNVA) | payer OTHER, SELFPAY | PROVIDERS: PCP Family Medicine; Visit Provider Podiatrist Foot & Ankle Surgery | DX: B35.1 Tinea unguium; G57.61 Lesion of plantar nerve, right lower limb | CPT/HCPCS: 99213 ==

== ENCOUNTER 2023-07-23 14:24 | Outpatient (CLI) | payer OTHER, SELFPAY ==
--- NOTE | 2023-07-23 14:32 | MR_ITS ---
WS: [id number] MRI RIGHT SHOULDER HISTORY: R SHOULDER PAIN COMPARISON: Radiograph 06/25/2023 TECHNIQUE: Multiplanar sequences of the shoulder joint are submitted. Moderate AC joint arthritis. Small amount of edema in the distal clavicle. Mild subacromial impingeme nt by an osteophyte on the distal undersurface of the acromion. Small amount of fluid in the subacrom ial and subdeltoid bursa. No os acromion. Biceps tendon in normal position. Small amount of fluid in the biceps tendon sheath. Normal position of the humeral head at the glenoid. Mild degenerative changes of subchondral cysts al margo the humeral head with mild loss of cartilage. No rotator cuff muscle atrophy or edema. There is a focal tear involving the distal supraspinatus tendon along the articular surface. This is a very sma ll tear. There is additional increased T2 signal extending along the bursal surface of the tendon at the site of the subacromial impingement. Not a definite tear but tendinopathy and fraying. No tendon retraction. No additional rotator cuff tears. Mild thickening and tendinopathy subscapularis tendon. There is a tear involving the superior labrum. Additional cystic change in the posterior labrum consi stent with a tear. MR/MR shoulder RT wo con* [id number] IMPRESSION: 1. Small articular surface tear of the distal supraspinatus tendon. There is a n additional area of tendinopathy along the bursal surface at the site of the s ubacromial impingement. 2. Labral tears involving the superior labrum and the posterior labrum. 3. Mild tendinopathy distal subscapularis tendon. 4. Moderate AC joint arthritis with mild subacromial impingement.
== END 2023-07-23 14:25 | disposition home or self-care (01) ==
LOC: RAD 14:24
PROVIDERS: PCP Family Medicine; Visit Provider Podiatrist Foot & Ankle Surgery
DX: M25.511 Pain in right shoulder (principal); M75.101 Unspecified rotator cuff tear or rupture of right shoulder, not specified as traumatic; M19.011 Primary osteoarthritis, right shoulder
CPT/HCPCS: 73221

== ENCOUNTER 2023-07-23 14:24 | Outpatient (CLI) | payer OTHER, SELFPAY ==
--- NOTE | 2023-07-23 14:26 | MR_ITS ---
WS: [id number] MRI RIGHT FOOT WITHOUT CONTRAST. COMPARISON: Radiographs 10/31/2022 Multiplanar, multisequence imaging is performed without contrast. No definite Kennedy's neuroma is identified within the intertarsal spaces of the RIGHT foot. There is mild crowding of the second intertarsal space but there is no mass identified. There is a large amount of edema throughout the proximal phalanx of the second toe. Edema greatest to wards the phalangeal head. There is surrounding soft tissue edema. Indeterminate for a nondisplaced f racture. No fracture was identified on the recent radiograph. This could be a stress fracture. Small erosions involving the first metatarsal head. This can be seen with gout. These erosions are in the extra-articular portion of the metatarsal phalangeal joint. No additional abnormalities. MR/MR foot RT wo con* [id number] IMPRESSION: 1. No Kennedy's neuroma identified within the intertarsal spaces. 2. Marrow edema throughout a large portion proximal phalanx second toe. Indete rminant for fracture. This could be a stress fracture or stress reaction. There is surrounding edema. 3. Small erosions first metatarsal head. This can be seen with gout.
== END 2023-07-23 14:25 | disposition home or self-care (01) ==
LOC: RAD 14:24
PROVIDERS: PCP Family Medicine; Visit Provider Nurse Practitioner Family
DX: G57.60 Lesion of plantar nerve, unspecified lower limb (principal); R60.0 Localized edema; M85.871 Other specified disorders of bone density and structure, right ankle and foot
CPT/HCPCS: 73718

== ENCOUNTER → 2023-07-30 14:59 | Outpatient (BNVA) | payer OTHER, SELFPAY | PROVIDERS: PCP Family Medicine; Visit Provider Podiatrist Foot & Ankle Surgery | DX: G57.61 Lesion of plantar nerve, right lower limb; S92.501A Displaced unspecified fracture of right lesser toe(s), initial encounter for closed fracture; X58.XXXA Exposure to other specified factors, initial encounter | CPT/HCPCS: 64455; 99213; J1100; J3301; J3490 ==

== ENCOUNTER → 2023-08-13 14:26 | Outpatient (BNVA) | payer OTHER, SELFPAY | PROVIDERS: PCP Family Medicine; Referring Provider Family Medicine; Visit Provider Student in an Organized Health Care Education/Training Program | DX: S43.431A Superior glenoid labrum lesion of right shoulder, initial encounter; X58.XXXA Exposure to other specified factors, initial encounter; M75.111 Incomplete rotator cuff tear or rupture of right shoulder, not specified as traumatic | CPT/HCPCS: 99204 ==

== ENCOUNTER → 2023-09-13 06:55 | Outpatient (BNVA) | payer OTHER, SELFPAY | PROVIDERS: PCP Family Medicine; Visit Provider Student in an Organized Health Care Education/Training Program | DX: S43.431A Superior glenoid labrum lesion of right shoulder, initial encounter; X58.XXXA Exposure to other specified factors, initial encounter; M75.111 Incomplete rotator cuff tear or rupture of right shoulder, not specified as traumatic | CPT/HCPCS: 20610; 77002; 99213; J3301 ==

== ENCOUNTER → 2023-09-23 10:06 | Outpatient (BNVA) | payer OTHER, SELFPAY | PROVIDERS: PCP Family Medicine; Visit Provider Podiatrist Foot & Ankle Surgery | DX: G57.61 Lesion of plantar nerve, right lower limb (principal) | CPT/HCPCS: 64455; J1100; J3301; J3490 ==

== ENCOUNTER → 2023-11-10 17:34 | Outpatient (BNVA) | payer SELFPAY | PROVIDERS: PCP Family Medicine; Visit Provider Emergency Medicine | DX: J02.9 Acute pharyngitis, unspecified (principal) | CPT/HCPCS: 87071; 87426; 87880 ==

== ENCOUNTER 2023-11-24 18:00 | Emergency (ER) | payer OTHER, SELFPAY ==
[2023-11-24 18:07] VITALS: BP 156/97; PULSE 116; RESP 17; TEMP 36.9; O2SAT 97; BMI 26.5
--- NOTE | 2023-11-24 19:48 | W.ED.PSYCHS ---
HPI - Psych General: Chief Complaint: Psychiatric Symptoms Stated Complaint: difficulty swallowing, seeing things Time Seen by Provider: 11/24/23 18:32 History of Present Illness: Patient presents to the ER with complaints of hallucinations and delusions starting today. Patient does have a diagnosis of depression with a delusional component. Hearing voices and seeing things is not uncommon for him however these voices are louder than normal and they are more active than normal. Patient's states he started Cogentin a while back to help with his tremors at the [facility] causes. He recently had an increase in his Cogentin to 1 mg twice a day approximately 2 weeks ago and up until this point has had no complaints. However they did read that it may cause worsening of his psychiatric symptoms. He has no other complaints at this time. Denies nausea vomiting diarrhea constipation fevers chills cough cold sore throats any overt illness. Related Data Home Medications Medication Instructions Recorded Confirmed omeprazole 20 mg capsule,delayed 20 mg PO DAILY 03/30/20 11/10/23 release tizanidine 4 mg capsule 4 mg PO BID PRN Back Pain 03/30/20 11/10/23 clomipramine 25 mg capsule 25 mg PO QPM 02/18/23 11/10/23 [id number]-fish oil 120 1 cap PO BID 02/20/23 11/10/23 mg-180 mg-60 mg-1,200 mg capsule, DR (Fish Oil) aripiprazole 5 mg tablet (Abilify) 5 mg PO DAILY 08/13/23 11/10/23 bupropion HCl 300 mg 24 hr tablet, 300 mg PO QAM 09/13/23 11/10/23 extended release (Wellbutrin XL) zolpidem 10 mg tablet (Ambien) PO 11/10/23 11/10/23 Previous Rx's Medication Instructions Recorded Custom Molded Orthotics #1 ea 10/03/20 calcipotriene 0.005 % topical cream 1 applic topical BID #120 grams 04/11/22 triamcinolone acetonide 0.1 % 1 applic topical BID #80 grams 04/11/22 topical ointment ciclopirox 8 % topical solution 1 applic topical DAILY 4 weeks 05/07/22 #6.6 mL Supinator #1 ea 10/22/22 clobetasol 0.05 % topical ointment 1 applic topical BID 2 weeks #60 10/26/22 grams amoxicillin 500 mg tablet 1,000 mg (2 x 500 mg) PO BID 10 11/10/23 days #40 tabs clotrimazole 10 mg gus 10 mg mucous membrane TID #60 tabs 11/10/23 naproxen 500 mg tablet See Rx Instructions .Route 11/14/23 .COMPLEX #60 tabs haloperidol 5 mg tablet 5 mg PO DAILY PRN Hallucinations 11/24/23 and delusions #5 tabs Allergies Allergy/AdvReac Type Severity Reaction Status Date / Time No Known Allergies Allergy Verified 11/10/23 17:07 Review of Systems General: Reports: 10 or more systems reviewed and unremarkable except in HPI and below PFSH ED PFSH: Medical History Hypertension GERD (gastroesophageal reflux disease) Muscle spasm Family History Family/Other CAD (coronary artery disease) Grandfather Heart failure Rheumatic fever Denies family history of Diabetes Stroke Social History Smoking and tobacco/nicotine status: former use of tobacco/nicotine Alcohol intake: never Substance/Drug Use: never Lives independently: Yes Household members: spouse and children Marital status: Physical Exam Const: COMMON NORMALS: no acute distress, average body habitus, patient oriented x3, no limitations, healthy appearing, alert and well nourished HENMT: COMMON NORMALS: normocephalic, atraumatic, hearing grossly normal bilaterally, external ears normal, Normal external nose present and moist oral mucous membranes HEAD & SCALP: normocephalic and atraumatic NOSE: Normal external nose present EXTERNAL EAR: Yes external ears normal Eye: COMMON NORMALS: Equal, round and reactive pupils present, EOMs intact bilaterally, conjunctivae normal and no scleral icterus CONJUNCTIVA: Yes conjunctivae normal PUPIL: Yes Equal, round and reactive pupils present Neck/C-Spine: COMMON NORMALS: full ROM, no lymphadenopathy, supple, no meningeal signs, no JVD and Thyroid normal THYROID: Thyroid normal Chest: COMMONS NORMALS: normal inspection of the chest and normal palpation of entire chest wall Resp: COMMON NORMALS: normal respiratory effort, No retractions, No use of accessory muscles and clear to auscultation bilaterally AUSCULTATION: clear to auscultation bilaterally Cardio: COMMON NORMALS: no JVD, regular rate, regular rhythm, S1 normal heart sound present, S2 normal heart sound present, No gallops present (Cardio), No clicks present (Cardio), No murmurs present (Cardio) and No rub (Cardio) RATE: regular rate RHYTHM: regular rhythm HEART SOUNDS: S1 normal heart sound present and S2 normal heart sound present GI: COMMON NORMALS: Normal to inspection, nondistended, normoactive bowel sounds present, Soft to palpation, non-tender, No hepatosplenomegaly present and no masses PALPATION: Yes Soft to palpation and Yes No hepatosplenomegaly present Neuro: COMMON NORMALS: patient oriented x3 SENSORIUM/ORIENTATION: Yes alert MENINGEAL SIGNS: Yes no meningeal signs Course Vital Signs: Vital signs: Vital Signs Temperature 98.4 F 11/24/23 18:07 Pulse Rate 94 11/24/23 21:00 Respiratory Rate 18 11/24/23 21:00 Blood Pressure 132/85 11/24/23 21:00 Pulse Oximetry 95 11/24/23 21:00 Oxygen Delivery Me thod Room Air 11/24/23 21:00 MDM - Psych Medical Decision Making All lab work from the patient's was essentially benign. Upon further reading on Dian says like he may be having anticholinergic side effects because they can started anytime. This was discussed with the patient and the . Patient will be decreased back to his half milligram twice daily and he will follow-up with his doctor tomorrow. We will give him 5 mg of Haldol here to see if it helps him through the night. Medical Records I reviewed the patient's medical records. Lab Data I reviewed the patient's lab results. 11/24/23 20:02 11/24/23 20:02 Laboratory Results WBC 6.66 10^3/uL (3.29-11.43) 11/24/23 20: RBC 4.38 10^6/uL (3.85-5.65) 11/24/23 20:02 Hgb 13.80 g/dL (11.27-16.99) 11/24/23 20: Hct 40.7 % (37-53) 11/24/23 20:02 MCV 92.9 fl (82-101) 11/24/23 20:02 MCH 31.5 pg (27-33) 11/24/23 20: MCHC 33.9 g/dL (30-55) 11/24/23 20:02 RDW 13.4 % (12.1-15.1) 11/24/23 20:02 Plt Count 331 10^3/cmm (157-399) 11/24/23 20:02 MPV 8.6 fL (7.4-10.4) 11/24/23 20:02 Neut % (Auto) 64.6 % 11/24/23 20:02 Lymph % (Auto) 23.4 % 11/24/23 20:02 [place] % (Auto) 9.5 % 11/24/23 20:02 Eos % (Auto) 1.4 % 11/24/23 20:02 Baso % (Auto) 0.8 % 11/24/23 20:02 Neut # (Auto) 4.31 10^3/uL (1.8-7.7) 11/24/23 20:02 Lymph # (Auto) 1.6 10^3/uL (0.8-4.8) 11/24/23 20:02 [place] # (Auto) 0.6 10^3/uL (0.2-0.9) 11/24/23 20:02 Eos # (Auto) 0.1 10^3/uL (0.0-0.8) 11/24/23 20:02 Baso # (Auto) 0.1 10^3/uL (0.0-0.1) 11/24/23 20:02 Nucleated RBC % (auto) 0 % 11/24/23 20: Nucleated RBCs # 0.0 /100WBC 11/24/23 20:02 Sodium 137 mmol/L (136-145) 11/24/23 20:02 Potassium 3.8 mmol/L (3.5-5.1) 11/24/23 20:02 Chloride 99 mmol/L (98-107) 11/24/23 20:02 Carbon Dioxide 28 mmol/L (22-29) 11/24/23 20:02 Anion Gap 13.8 (5-19) 11/24/23 20:02 BUN 8 mg/dL (6-20) 11/24/23 20:02 Creatinine 1.0 mg/dL (0.7-1.2) 11/24/23 20: GFR Calculation 81.6 mL/min (90-130) L 11/24/23 20:02 Glucose 101 mg/dL (65-115) 11/24/23 20:02 Calculated Osmolality 282 mOsm/kg (285-295) L 11/24/23 20:02 Calcium 9.3 mg/dL (8.5-10.5) 11/24/23 20: Magnesium 2.3 mg/dL (1.7-2.3) 11/24/23 20: Total Bilirubin 0.3 mg/dL (0.15-1.2) 11/24/23 20: AST 25 U/L (0-40) 11/24/23 20: ALT 39 U/L (0-41) 11/24/23 20: Alkaline Phosphatase 73 U/L (40-130) 11/24/23 20: Total Protein 7.6 g/dL (6.6-8.7) 11/24/23 20: Albumin 4.4 g/dL (3.5-5.2) 11/24/23 20: Globulin 3.2 g/dL (1.3-4.6) 11/24/23 20: TSH 0.41 uIU/mL (0.27-4.20) 11/24/23 20:02 Urine Color Yellow (Yellow) 11/24/23 19:00 Urine Appearance Clear (CLEAR) 11/24/23 19:00 Urine pH 6.5 (5-7) 11/24/23 19:00 Ur Specific [place] 1.005 (1.005-1.030) 11/24/23 19:00 Urine Protein Trace (Negative) 11/24/23 19:00 Urine Glucose (UA) Norm (Normal) 11/24/23 19:00 Urine Ketones Negative (Negative) 11/24/23 19:00 Urine Blood 2+ (Negative) H 11/24/23 19:00 Urine Nitrate Negative (Negative) 11/24/23 19: Urine Bilirubin Neg (Negative) 11/24/23 19:00 Urine Urobilinogen Norm mg/dL (Negative) 11/24/23 19:00 Ur Leukocyte Esterase Negative (Negative) 11/24/23 19:00 Urine RBC Rare /hpf (0-2) 11/24/23 19:00 Urine WBC None /hpf (0-5) 11/24/23 19:00 Ur Squamous Epith Cells Rare /hpf (0-5) 11/24/23 19:00 Amorphous Sediment Not Reportable 11/24/23 19:00 Urine Bacteria None /hpf (NONE) 11/24/23 19:00 Urine Opiates Screen Negative ng/mL (Negative) 11/24/23 19:00 Ur Barbiturates Screen Negative ng/mL (Negative) 11/24/23 19:00 Ur Phencyclidine Scrn Negative ng/mL (Negative) 11/24/23 19:00 Ur Amphetamines Screen Negative ng/mL (Negative) 11/24/23 19:00 U Benzodiazepines Scrn Negative ng/mL (Negative) 11/24/23 19:00 Urine Cocaine Screen Negative ng/mL (Negative) 11/24/23 19:00 U Marijuana (THC) Screen Negative ng/mL (Negative) 11/24/23 19:00 All radiology interpretation(s) finalized by discharge Discharge Plan Discharge Patient Disposition: Home Clinical Impression: Reaction, drug, adverse Qualifiers: Encounter type: initial encounter Qualified Code(s): T50.905A - Adverse effect of unspecified drugs, medicaments and biological substances, initial encounter Condition: Stable Prescriptions: New haloperidol 5 mg tablet 5 mg PO DAILY PRN (Reason: Hallucinations and delusions) Qty: 5 0RF No Action tizanidine 4 mg capsule 4 mg PO BID PRN (Reason: Back Pain) omeprazole 20 mg capsule,delayed release(DR/EC) 20 mg PO DAILY (DME) Custom Molded Orthotics See Rx Instructions .Route .MEDSUPPLY Qty: 1 0RF Rx Instructions: As directed, to be custom made by [facility] Physical Therapy Department I am requesting authorization to perform molds of his feet in podiatry clinic at [facility] and for custom orthotics to be manufactured through [facility] physical therapy department to treat plantar fasciitis bilaterally on this patient. Would require authorization for custom molded orthotics L code 3030 and dispensing through physical therapy CPT code 82437 calcipotriene 0.005 % cream 1 applic topical BID Qty: 120 1RF Rx Instructions: rub in gently and completely prn to affected areas. May use on face triamcinolone acetonide 0.1 % ointment 1 applic topical BID Qty: 80 2RF Rx Instructions: to knees BID alt. with clobetasol as needed for flares no more than 2 wks/mo clomipramine 25 mg capsule 25 mg PO QPM ciclopirox 8 % solution 1 applic topical DAILY 28 Days Qty: 6.6 0RF (DME) Supinator See Rx Instructions .Route .MEDSUPPLY Qty: 1 0RF Rx Instructions: As directed aripiprazole [Abilify] 5 mg tablet 5 mg PO DAILY bupropion HCl [Wellbutrin XL] 300 mg tablet extended release 24 hr 300 mg PO QAM zolpidem [Ambien] 10 mg tablet PO clotrimazole 10 mg gus 10 mg mucous membrane TID Qty: 60 0RF amoxicillin 500 mg tablet 1,000 mg PO BID 10 Days Qty: 40 0RF clobetasol 0.05 % ointment 1 applic topical BID 14 Days Qty: 60 1RF Rx Instructions: to affected areas on knees no more than 2 wks/mo prn alternating with triamcinolone naproxen 500 mg tablet See Rx Instructions .ROUTE .COMPLEX Qty: 60 2RF Dose Instruction: TAKE ONE TABLET BY MOUTH TWICE A DAY TAKE WITH FOOD. Rx Instructions: TAKE ONE TABLET BY MOUTH TWICE A DAY TAKE WITH FOOD. Fish Oil 120 mg-180 mg- 60 mg-1,200 mg Capsule,Delayed Release(Dr/Ec) 1 cap PO BID Discharge Orders: Discharge ED (Routine); Ordered 11/24/23 Ordered By: Rocky Sharp Referrals: Madeleine Khan MD [Primary Care Provider] - 1 week Patient Instructions: Adverse Drug Reaction (ED) Activity Restrictions/Additional Instructions: Your evaluation ER including lab work did not show any reason of your current symptomatology. Upon further reading about Cogentin and anticholinergic side effects it is felt that your worsening symptoms may be due to the increased dosing of the Cogentin. Please back off to 1/2 mg twice a day of the Cogentin you have been prescribed Haldol 5 mg to take on an as-needed basis for the worst hallucinations and delusions. Please follow-up with your family practice physician and/or psychiatrist for definitive treatment. Coding Level of Care Code ED Securities Consultant for Kev Jacobson
[2023-11-24 20:06] LABS: Basophils # 0.1 10^3/uL (0.0-0.1); Basophils % 0.8 %; Eosinophils # 0.1 10^3/uL (0.0-0.8); Eosinophils % 1.4 %; Hematocrit 40.7 % (37-53); Lymphocytes # 1.6 10^3/uL (0.8-4.8); Lymphocytes % 23.4 %; Mean Corpuscular HGB Conc 33.9 g/dL (30-55); Mean Corpuscular Hemoglobin 31.5 pg (27-33); Mean Corpuscular Volume 92.9 fl (82-101); Mean Platelet Volume 8.6 fL (7.4-10.4); Monocytes # 0.6 10^3/uL (0.2-0.9); Monocytes % 9.5 %; Neutrophils # 4.31 10^3/uL (1.8-7.7); Neutrophils % 64.6 %; Nucleated Red Blood Cells % 0 %; Platelet Count 331 10^3/cmm (157-399); Red Blood Count 4.38 10^6/uL (3.85-5.65); Red Cell Distribution Width 13.4 % (12.1-15.1); White Blood Count 6.66 10^3/uL (3.29-11.43)
[2023-11-24 20:35] LABS: Amphetamines Screen Urine Negative (Negative); Barbiturates Screen Urine Negative (Negative); Benzodiazepines Screen Urine Negative (Negative); Cocaine Screen Urine Negative (Negative); Opiate Screen Urine Negative (Negative); PCP Screen Urine Negative (Negative); THC Screen Urine Negative (Negative)
[2023-11-24 20:45] LABS: Alanine Aminotransferase 39 U/L (0-41); Albumin Level 4.4 g/dL (3.5-5.2); Alkaline Phosphatase 73 U/L (40-130); Anion Gap 13.8 (5-19); Aspartate Amino Transferase 25 U/L (0-40); Blood Urea Nitrogen 8 mg/dL (6-20); Calcium 9.3 mg/dL (8.5-10.5); Carbon Dioxide 28 mmol/L (22-29); Chloride 99 mmol/L (98-107); Creatinine Clr Calc Pharmacy 104.2292; Globulin 3.2 g/dL (1.3-4.6); Glomerular Filtration Rate 81.6 mL/min (90-130); Glucose 101 mg/dL (65-115); Magnesium 2.3 mg/dL (1.7-2.3); Osmolality Calculated 282 mOsm/kg (285-295); Potassium 3.8 mmol/L (3.5-5.1); Sodium 137 mmol/L (136-145); Thyroid Stimulating Hormone 0.41 uIU/mL (0.27-4.20); Total Bilirubin 0.3 mg/dL (0.15-1.2); Total Protein 7.6 g/dL (6.6-8.7)
[2023-11-24 21:00] VITALS: BP 132/85; PULSE 94; RESP 18; O2SAT 95
[2023-11-24 21:03] LABS: Add Urine Microscopic? YES; Bilirubin Urine Neg (Negative); Blood Urine 2+ (Negative); Glucose Urine UA Norm (Normal); Ketones Urine Negative (Negative); Leukocyte Esterase Urine Negative (Negative); Nitrate Urine Negative (Negative); Protein Urine Trace (Negative); Specific Gravity, Urine 1.005 (1.005-1.030); UA Manual Slide Review YES; UA Slide Review UA Slide Review Perf; Urine Appearance Clear (CLEAR); Urine Color Yellow (Yellow); Urobilinogen Urine Norm (Negative); pH Urine 6.5 (5-7)
[2023-11-24 21:04] LABS: RBC Urine RARE /hpf (0-2); Squamous Epithelial Cell Urine RARE /hpf (0-5)
[2023-11-24] MEDS: haloperidol 5 mg Tablet PO (21:39)
[2023-11-24 21:42] VITALS: BP 135/88; PULSE 94; RESP 16; O2SAT 96
== END 2023-11-24 21:44 | disposition home or self-care (01) ==
PROVIDERS: Emergency Provider Emergency Medicine; PCP Family Medicine
DX: R44.0 Auditory hallucinations (principal); T44.3X5A Adverse effect of other parasympatholytics [anticholinergics and antimuscarinics] and spasmolytics, initial encounter; I10 Essential (primary) hypertension; Z87.891 Personal history of nicotine dependence
CPT/HCPCS: 36415; 80053; 80306; 81001; 83735; 84443; 85025; 99283

== ENCOUNTER → 2023-12-12 10:19 | Outpatient (BNVA) | payer OTHER, SELFPAY | PROVIDERS: PCP Family Medicine; Visit Provider Nurse Practitioner Family | DX: L23.9 Allergic contact dermatitis, unspecified cause (principal); L40.0 Psoriasis vulgaris; D22.62 Melanocytic nevi of left upper limb, including shoulder; L57.8 Other skin changes due to chronic exposure to nonionizing radiation | CPT/HCPCS: 99214 ==

== ENCOUNTER → 2023-12-23 09:23 | Outpatient (BNVA) | payer OTHER, SELFPAY | PROVIDERS: PCP Family Medicine; Visit Provider Podiatrist Foot & Ankle Surgery | DX: G57.61 Lesion of plantar nerve, right lower limb (principal); R03.0 Elevated blood-pressure reading, without diagnosis of hypertension | CPT/HCPCS: 64455; J1100; J3301; J3490 ==

== ENCOUNTER → 2023-12-24 14:01 | Outpatient (BNVA) | payer OTHER, SELFPAY | PROVIDERS: PCP Family Medicine; Visit Provider Student in an Organized Health Care Education/Training Program | DX: M75.111 Incomplete rotator cuff tear or rupture of right shoulder, not specified as traumatic; S43.431A Superior glenoid labrum lesion of right shoulder, initial encounter; X58.XXXA Exposure to other specified factors, initial encounter | CPT/HCPCS: 20610; 99213; J3301 ==

== ENCOUNTER → 2024-01-16 15:28 | Outpatient (BNVA) | payer OTHER, SELFPAY | PROVIDERS: PCP Family Medicine; Visit Provider Nurse Practitioner Family | DX: L23.9 Allergic contact dermatitis, unspecified cause (principal); L40.0 Psoriasis vulgaris; D22.62 Melanocytic nevi of left upper limb, including shoulder; L57.8 Other skin changes due to chronic exposure to nonionizing radiation; L57.0 Actinic keratosis; L82.1 Other seborrheic keratosis | CPT/HCPCS: 17000; 99214 ==

== ENCOUNTER 2024-02-29 00:14 | Emergency (ER) | payer OTHER, SELFPAY ==
--- NOTE | 2024-02-29 00:18 | ECG_ITS ---
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 Measurements Intervals [place] Rate: 111 P: 46 WI: 141 QRS: 12 QRSD: 106 T: 61 QT: 330 QTc: 449 Interpretive Statements SINUS TACHYCARDIA NONSPECIFIC T-WAVE ABNORMALITY Compared to ECG 09/13/2021 19:07:47 T-wave abnormality now present Sinus rhythm no longer present Sinus arrhythmia no longer present Electronically Signed On 03-02-2024 20:23:39 MILLING PLANER OPERATOR by Samuel Dye M.D. [id number]
--- NOTE | 2024-02-29 00:18 | XRR_ITS ---
PROCEDURE INFORMATION: Exam: XR Chest Exam date and time: 02/29/2024 12:43 AM Age: 44 years old Clinical indication: Chest pressure; Patient HX: C/O chest pain; Additional info: Cp TECHNIQUE: Imaging protocol: Radiologic exam of the chest. Views: 1 view. COMPARISON: CT angio chest PE protcl [id number] 05/01/2020 9:33 PM FINDINGS: Lungs: There is mild indistinctness of the pulmonary vasculature. Pleural spaces: Unremarkable. No pleural effusion. No pneumothorax. Heart/Mediastinum: A calcified aortopulmonic lymph node is present. Bones/joints: Unremarkable. Other findings: Few septal markings are seen in the lower adonis thoraces bilaterally. XR/XR chest 1V portable [id number] IMPRESSION: 1. Mild indistinctness of the pulmonary vasculature and few septal markings in the lung bases could represent mild pulmonary edema. 2. Calcified aortopulmonic lymph node
[2024-02-29 00:19] VITALS: BP 144/84; PULSE 110; RESP 19; TEMP 36.4; O2SAT 99; BMI 26.5
--- NOTE | 2024-02-29 00:56 | ED_ITS ---
HPI - Chest Pain 2 General: Chief Complaint: Chest Pain Stated Complaint: chest pain Time Seen by Provider: 02/29/24 00:52 History of Present Illness: Patient presents to the ER with crushing substernal chest pain that radiates into his back and up his neck that started about an hour prior to arrival. Patient states it started shortly after intercourse patient did take a Viagra at that time. Patient reports nausea no vomiting. Patient's took Viagra before with no similar side effects. Patient denies any shortness of breath diaphoresis Related Data Home Medications Medication Instructions Recorded Confirmed omeprazole 20 mg capsule,delayed 20 mg PO DAILY 03/30/20 12/24/23 release tizanidine 4 mg capsule 4 mg PO BID PRN Back Pain 03/30/20 12/24/23 clomipramine 25 mg capsule 25 mg PO QPM 02/18/23 12/24/23 aripiprazole 5 mg tablet (Abilify) 5 mg PO DAILY 08/13/23 12/24/23 bupropion HCl 300 mg 24 hr tablet, 300 mg PO QAM 09/13/23 12/24/23 extended release (Wellbutrin XL) zolpidem 10 mg tablet (Ambien) PO 11/10/23 12/24/23 Previous Rx's Medication Instructions Recorded Custom Molded Orthotics #1 ea 10/03/20 calcipotriene 0.005 % topical cream 1 applic topical BID #120 grams 04/11/22 triamcinolone acetonide 0.1 % 1 applic topical BID #80 grams 04/11/22 topical ointment ciclopirox 8 % topical solution 1 applic topical DAILY 4 weeks 05/07/22 #6.6 mL Supinator #1 ea 10/22/22 clobetasol 0.05 % topical ointment 1 applic topical BID 2 weeks #60 10/26/22 grams naproxen 500 mg tablet See Rx Instructions .Route 11/14/23 .COMPLEX #60 tabs Allergies Allergy/AdvReac Type Severity Reaction Status Date / Time No Known Allergies Allergy Verified 02/29/24 00:27 Review of Systems 2 General: Reports: 10 or more systems reviewed and unremarkable except in HPI and below PFSH ED 2 PFSH: Medical History Hypertension GERD (gastroesophageal reflux disease) Muscle spasm Family History Family/Other CAD (coronary artery disease) Grandfather Heart failure Rheumatic fever Denies family history of Diabetes Stroke Social History Smoking and tobacco/nicotine status: former use of tobacco/nicotine Alcohol intake: never Substance/Drug Use: never Lives independently: Yes Household members: spouse and children Marital status: Physical Exam 2 Const: COMMON NORMALS: no acute distress, average body habitus, patient oriented x3, no limitations, healthy appearing, alert and well nourished HENMT: COMMON NORMALS: normocephalic, atraumatic, hearing grossly normal bilaterally, external ears normal and moist oral mucous membranes HEAD & SCALP: normocephalic and atraumatic EXTERNAL EAR: Yes external ears normal Neck/C-Spine: COMMON NORMALS: no JVD Chest: COMMONS NORMALS: normal inspection of the chest and normal palpation of entire chest wall Cardio: COMMON NORMALS: no JVD, regular rate, regular rhythm, S1 normal heart sound present, S2 normal heart sound present, No gallops present (Cardio), No clicks present (Cardio), No murmurs present (Cardio) and No rub (Cardio) R ATE: regular rate RHYTHM: regular rhythm HEART SOUNDS: S1 normal heart sound present and S2 normal heart sound present GI: COMMON NORMALS: Normal to inspection, nondistended, normoactive bowel sounds present, Soft to palpation, non-tender, No hepatosplenomegaly present and no masses PALPATION: Yes Soft to palpation and Yes No hepatosplenomegaly present Neuro: COMMON NORMALS: patient oriented x3 SENSORIUM/ORIENTATION: Yes alert Course 2 Vital Signs: Vital signs: Vital Signs Temperature 97.5 F L 02/29/24 00:19 Pulse Rate 94 02/29/24 02:53 Respiratory Rate 18 02/29/24 02:53 Blood Pressure 142/98 02/29/24 02:53 Pulse Oximetry 93 02/29/24 02:53 Oxygen Delivery Me thod Room Air, Nasal C annula 02/29/24 00:19 MDM - Chest Pain Medical Decision Making Patient was worked up in standard chest pain fashion with serial EKGs, chest x- ray serial troponins, all of which was essentially benign. Patient was given Toradol which did help the pain. Patient's heart rate come down from 110 to approximately 94 4 beats a minute. These results were discussed with patient and his . Patient will be discharged home. Medical Records I reviewed the patient's medical records. Lab Data I reviewed the patient's lab results. 02/29/24 00:54 02/29/24 00:54 Radiology Impressions Chest X-Ray 02/29/24 00:18 IMPRESSION: 1. Mild indistinctness of the pulmonary vasculature and few septal markings in the lung bases could represent mild pulmonary edema. 2. Calcified aortopulmonic lymph node Laboratory Results WBC 6.79 10^3/uL (3.29-11.43) 02/29/24 00:54 RBC 4.42 10^6/uL (3.85-5.65) 02/29/24 00:54 Hgb 13.70 g/dL (11.27-16.99) 02/29/24 00:54 Hct 40.4 % (37-53) 02/29/24 00:54 MCV 91.4 fl (82-101) 02/29/24 00:54 MCH 31.0 pg (27-33) 02/29/24 00:54 MCHC 33.9 g/dL (30-55) 02/29/24 00:54 RDW 14.4 % (12.1-15.1) 02/29/24 00:54 Plt Count 317 10^3/cmm (157-399) 02/29/24 00:54 MPV 8.6 fL (7.4-10.4) 02/29/24 00:54 Neut % (Auto) 51.5 % 02/29/24 00:54 Lymph % (Auto) 37.1 % 02/29/24 00:54 [place] % (Auto) 9.0 % 02/29/24 00:54 Eos % (Auto) 1.5 % 02/29/24 00:54 Baso % (Auto) 0.6 % 02/29/24 00:54 Neut # (Auto) 3.50 10^3/uL (1.8-7.7) 02/29/24 00:54 Lymph # (Auto) 2.5 10^3/uL (0.8-4.8) 02/29/24 00:54 [place] # (Auto) 0.6 10^3/uL (0.2-0.9) 02/29/24 00:54 Eos # (Auto) 0.1 10^3/uL (0.0-0.8) 02/29/24 00:54 Baso # (Auto) 0.0 10^3/uL (0.0-0.1) 02/29/24 00:54 Nucleated RBC % (auto) 0 % 02/29/24 00:54 Nucleated RBCs # 0.0 /100WBC 02/29/24 00:54 Sodium 137 mmol/L (136-145) 02/29/24 00:54 Potassium 3.8 mmol/L (3.5-5.1) 02/29/24 00:54 Chloride 102 mmol/L (98-107) 02/29/24 00:54 Carbon Dioxide 25 mmol/L (22-29) 02/29/24 00:54 Anion Gap 13.8 (5-19) 02/29/24 00:54 BUN 14 mg/dL (6-20) 02/29/24 00:54 Creatinine 1.0 mg/dL (0.7-1.2) 02/29/24 00:54 GFR Calculation 81.2 mL/min (90-130) L 02/29/24 00:54 Glucose 84 mg/dL (65-115) 02/29/24 00:54 Calculated Osmolality 284 mOsm/kg (285-295) L 02/29/24 00:54 Calcium 9.4 mg/dL (8.5-10.5) 02/29/24 00:54 Troponin T Baseline < 6 ng/L (0-15) 02/29/24 00:54 Troponin T 120 Minute 6.00 ng/L (0-15) 02/29/24 02:19 Delta Troponin T 0.85850 ABS# (0-10) 02/29/24 02:19 All radiology interpretation(s) finalized by discharge Discharge Plan Discharge Patient Disposition: Home Clinical Impression: Chest pain Condition: Stable Prescriptions: No Action tizanidine 4 mg capsule 4 mg PO BID PRN (Reason: Back Pain) omeprazole 20 mg capsule,delayed release(DR/EC) 20 mg PO DAILY (DME) Custom Molded Orthotics See Rx Instructions .Route .MEDSUPPLY Qty: 1 0RF Rx Instructions: As directed, to be custom made by [facility] Physical Therapy Department I am requesting authorization to perform molds of his feet in podiatry clinic at [facility] and for custom orthotics to be manufactured through [facility] physical therapy department to treat plantar fasciitis bilaterally on this patient. Would require authorization for custom molded orthotics L code 3030 and dispensing through physical therapy CPT code 34018 calcipotriene 0.005 % cream 1 applic topical BID Qty: 120 1RF Rx Instructions: rub in gently and completely prn to affected areas. May use on face triamcinolone acetonide 0.1 % ointment 1 applic topical BID Qty: 80 2RF Rx Instructions: to knees BID alt. with clobetasol as needed for flares no more than 2 wks/mo clomipramine 25 mg capsule 25 mg PO QPM ciclopirox 8 % solution 1 applic topical DAILY 28 Days Qty: 6.6 0RF (DME) Supinator See Rx Instructions .Route .MEDSUPPLY Qty: 1 0RF Rx Instructions: As directed aripiprazole [Abilify] 5 mg tablet 5 mg PO DAILY bupropion HCl [Wellbutrin XL] 300 mg tablet extended release 24 hr 300 mg PO QAM zolpidem [Ambien] 10 mg tablet PO clobetasol 0.05 % ointment 1 applic topical BID 14 Days Qty: 60 1RF Rx Instructions: to affected areas on knees no more than 2 wks/mo prn alternating with triamcinolone naproxen 500 mg tablet See Rx Instructions .ROUTE .COMPLEX Qty: 60 2RF Dose Instruction: TAKE ONE TABLET BY MOUTH TWICE A DAY TAKE WITH FOOD. Rx Instructions: TAKE ONE TABLET BY MOUTH TWICE A DAY TAKE WITH FOOD. Discharge Orders: Discharge ED (Routine); Ordered 02/29/24 Ordered By: Rocky Sharp Referrals: Madeleine Khan MD [Primary Care Provider] - 1 week Patient Instructions: Chest Pain (ED) Activity Restrictions/Additional Instructions: Your evaluation ER that included cardiac enzymes, blood work, chest x-ray, EKGs all were essentially benign. Did not point to cardiac cause of your chest pain. Is felt that your chest pain is noncardiac in nature. Please follow-up with your family practice physician within the next 7 days for further evaluation treatment as needed. Coding Level of Care Code ED Mechanical Pencils Assembler for Kev Jacobson
[2024-02-29 01:00] LABS: Basophils % 0.6 %; Eosinophils # 0.1 10^3/uL (0.0-0.8); Eosinophils % 1.5 %; Hematocrit 40.4 % (37-53); Lymphocytes # 2.5 10^3/uL (0.8-4.8); Lymphocytes % 37.1 %; Mean Corpuscular HGB Conc 33.9 g/dL (30-55); Mean Corpuscular Volume 91.4 fl (82-101); Mean Platelet Volume 8.6 fL (7.4-10.4); Monocytes # 0.6 10^3/uL (0.2-0.9); Neutrophils % 51.5 %; Nucleated Red Blood Cells % 0 %; Platelet Count 317 10^3/cmm (157-399); Red Blood Count 4.42 10^6/uL (3.85-5.65); Red Cell Distribution Width 14.4 % (12.1-15.1); White Blood Count 6.79 10^3/uL (3.29-11.43)
[2024-02-29] MEDS: ketorolac 60 mg/2 mL INJ IM (01:06)
[2024-02-29 01:18] LABS: Troponin(5th) Baseline < 6 ng/L (0-15)
[2024-02-29 01:21] LABS: Anion Gap 13.8 (5-19); Blood Urea Nitrogen 14 mg/dL (6-20); Calcium 9.4 mg/dL (8.5-10.5); Carbon Dioxide 25 mmol/L (22-29); Chloride 102 mmol/L (98-107); Creatinine Clr Calc Pharmacy 103.1547; Glomerular Filtration Rate 81.2 mL/min (90-130); Glucose 84 mg/dL (65-115); Osmolality Calculated 284 mOsm/kg (285-295); Potassium 3.8 mmol/L (3.5-5.1); Sodium 137 mmol/L (136-145)
[2024-02-29 02:49] LABS: Troponin 5 2HR Delta 0.00001 ABS# (0-10)
[2024-02-29 02:53] VITALS: BP 142/98; PULSE 94; RESP 18; O2SAT 93
[2024-02-29 03:31] VITALS: BP 142/98; PULSE 72; O2SAT 96
== END 2024-02-29 03:32 | disposition home or self-care (01) ==
PROVIDERS: Emergency Provider Emergency Medicine; PCP Family Medicine
DX: R07.9 Chest pain, unspecified (principal); Z87.891 Personal history of nicotine dependence; I10 Essential (primary) hypertension
CPT/HCPCS: 36415; 71045; 80048; 84484; 85025; 93005; 96372; 99285; J1885

== ENCOUNTER → 2024-04-27 08:26 | Outpatient (BNVA) | payer OTHER, SELFPAY | PROVIDERS: PCP Family Medicine; Visit Provider Podiatrist Foot & Ankle Surgery | DX: G57.61 Lesion of plantar nerve, right lower limb (principal); M79.671 Pain in right foot | CPT/HCPCS: 64455; J1100; J3301; J3490 ==

== ENCOUNTER 2024-08-17 08:32 | Emergency (ER) | payer OTHER, SELFPAY ==
[2024-08-17 08:38] VITALS: BP 132/82; PULSE 76; RESP 16; TEMP 36.4; O2SAT 98
--- NOTE | 2024-08-17 08:46 | XR_ITS ---
WS: [id number] RIGHT SHOULDER: 3 VIEW(S) TECHNIQUE: Internal and external rotation with Y view. HISTORY: trauma COMPARISON: 06/24/2023 and 06/18/2023 Mild narrowing of the AC joint. Irregularity of the cortex consistent with a nondisplaced acromial fracture. No additional acute fracture. Humeral head is slightly high riding. Prior healed rib fracture RIGHT upper thorax. XR/XR shoulder RT min 2V* [id number] IMPRESSION: Suspect acute nondisplaced acromial fracture.
--- NOTE | 2024-08-17 08:48 | ECG_ITS ---
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 Measurements Intervals [place] Rate: 84 P: 39 [place]: 128 QRS: 28 QRSD: 98 T: 48 QT: 347 QTc: 410 Interpretive Statements SINUS RHYTHM Electronically Signed On 08-17-2024 08:52:32 CDT by Samuel Dye M.D. [email or web address] [id number]
[2024-08-17 08:59] VITALS: BP 125/75; O2SAT 98
--- NOTE | 2024-08-17 09:20 | W.ED.EXTPRO ---
HPI - Extremity Problem General: Chief complaint: Extremity Injury, Upper Stated complaint: Right shoulder pain Time Seen by Provider: 08/17/24 08:40 History of Present Illness: 44-year-old male who presents to the emergency room complaining of right shoulder pain has had it for the last couple of days. Initially told me he has not had any falls but thinks that maybe about a week to 2 weeks ago he fell out of bed landed on his right shoulder but he had no pain with it until the last couple of days. Pain radiates from his neck across his trapezius muscle into the shoulder and right upper arm. At times radiates down to his hand. No previous neck injury. He did relate the onset of pain to doing a lot of moving of heavy furniture recently. He is not having any chest pain no shortness of breath not having any vomiting or diarrhea. No hematochezia melena hematemesis coffee-ground emesis no abdominal pain. Associated symptoms: Deny chest pain, fever(s) or rash Related Data Home Medications ?Medication ?Instructions ?Recorded ?Confirmed omeprazole 20 mg capsule,delayed 20 mg PO DAILY 03/30/20 04/27/24 release tizanidine 4 mg capsule 4 mg PO BID PRN Back Pain 03/30/20 04/27/24 clomipramine 25 mg capsule 25 mg PO QPM 02/18/23 04/27/24 aripiprazole 5 mg tablet (Abilify) 5 mg PO DAILY 08/13/23 04/27/24 bupropion HCl 300 mg 24 hr tablet, 300 mg PO QAM 09/13/23 04/27/24 extended release (Wellbutrin XL) zolpidem 10 mg tablet (Ambien) PO 11/10/23 04/27/24 Previous Rx's ?Medication ?Instructions ?Recorded Custom Molded Orthotics #1 ea 10/03/20 calcipotriene 0.005 % topical cream 1 applic topical BID #120 grams 04/11/22 triamcinolone acetonide 0.1 % 1 applic topical BID #80 grams 04/11/22 topical ointment ciclopirox 8 % topical solution 1 applic topical DAILY 4 weeks 05/07/22 #6.6 mL Supinator #1 ea 10/22/22 clobetasol 0.05 % topical ointment 1 applic topical BID 2 weeks #60 10/26/22 grams naproxen 500 mg tablet See Rx Instructions .Route 05/05/24 .COMPLEX #60 tabs diclofenac sodium 75 mg 75 mg PO Q12H PRN pain #20 tabs 08/17/24 tablet,delayed release prednisone 20 mg tablet 20 mg PO TID #15 tabs 08/17/24 tizanidine 4 mg tablet 4 mg PO Q6H PRN muscle spasticity 08/17/24 #20 tabs Allergies Allergy/AdvReac Type Severity Reaction Status Date / Time No Known Allergies Allergy Verified 04/27/24 08:27 Review of Systems Const: Denies: fever(s) or chills Card: Denies: chest pain Resp: Denies: dyspnea GI: Denies: abdominal pain : Denies: dysuria, urinary frequency or urinary urgency Musc: Denies: neck pain or back pain Skin/Breast: Denies: rash PFSH ED PFSH: Medical History Hypertension GERD (gastroesophageal reflux disease) Muscle spasm Family History Family/Other CAD (coronary artery disease) Grandfather Heart failure Rheumatic fever Denies family history of Diabetes Stroke Social History Smoking and tobacco/nicotine status: former use of tobacco/nicotine Alcohol intake: never Substance/Drug Use: never Lives independently: Yes Household members: spouse and children Marital status: Physical Exam Const: COMMON NORMALS: no acute distress GENERAL APPEARANCE: cooperative and comfortable ORIENTATION/CONSCIOUSNESS: Yes awake, Yes oriented to person, Yes oriented to place and Yes oriented to time HENMT: COMMON NORMALS: normocephalic, atraumatic and hearing grossly normal bilaterally HEAD & SCALP: normocephalic and atraumatic Resp: COMMON NORMALS: normal respiratory effort, No retractions, No use of accessory muscles and clear to auscultation bilaterally AUSCULTATION: clear to auscultation bilaterally Cardio: COMMON NORMALS: regular rate, regular rhythm and No murmurs present (Cardio) RATE: regular rate RHYTHM: regular rhythm GI: COMMON NORMALS: Soft to palpation and No hepatosplenomegaly present AUSCULTATION: Yes normoactive bowel sounds PALPATION: Yes Soft to palpation, No Tenderness to palpation present (GI), No Guarding due to palpation present (GI) and Yes No hepatosplenomegaly present Extremity: COMMON NORMALS: normal to inspection, capillary refill normal, no clubbing, cyanosis or edema, no calf tenderness and no pedal edema OTHER: Full range of motion without eliciting pain. Negative impingement sign. No pain with palpation at the AC joint. Neuro: SENSORIUM/ORIENTATION: Yes oriented to person, Yes oriented to place and Yes oriented to time Skin: COMMON NORMALS: no rashes or lesions noted GENERAL SKIN EXAM: no rashes or lesions noted Course Vital Signs: Vital signs: Vital Signs Temperature 97.6 F 08/17/24 08:38 Pulse Rate 85 08/17/24 09:32 Respiratory Rate 16 08/17/24 08:38 Blood Pressure 120/87 08/17/24 09:32 Pulse Oximetry 97 08/17/24 09:32 Oxygen Delivery Me thod Room Air 08/17/24 09:32 MDM - Extremity (Nontraumatic) Medical Decision Making X-ray shows questional acromial flat fracture although patient does not have any direct pain when I palpate in that area. He describes more the pain is radiating out his neck across his trapezius into his upper arm seems more like cervical radicular pain. Will refer him to orthopedics he is given Toradol and dexamethasone here start a steroid taper tomorrow he is given diclofenac and tizanidine to use as needed at discharge return if he has further problems. Because he has low no pain in the direct area of concern with the acromial fracture did not place him in a splint at this time he has full range of motion of the shoulder without pain Medical Records I reviewed the patient's medical records. Lab Data Radiology Impressions Shoulder X-Ray 08/17/24 08:46 IMPRESSION: Suspect acute nondisplaced acromial fracture. All radiology interpretation(s) finalized by discharge EKG Data EKG 1: Interpretation: EKG August 17, 2024 848 normal sinus rhythm ventricular rate 84 OH interval 128 QTc [address] changes are noted. Compared to EKG February 29, 2024 sinus tachycardia no longer present on the previous EKG there appears to have been a rate related ST segment changes which are no longer present Discharge Plan Discharge Patient Disposition: Home Clinical Impression: Cervical radiculopathy, Closed fracture of acromion Condition: Stable Prescriptions: New tizanidine 4 mg tablet 4 mg PO Q6H PRN (Reason: muscle spasticity) Qty: 20 0RF Rx Instructions: do not exceed 3 doses per 24 hrs prednisone 20 mg tablet 20 mg PO TID Qty: 15 0RF Rx Instructions: 1 p.o. 3 times daily x3 days, 1 p.o. twice daily x2 days, 1 p.o. daily x2 days diclofenac sodium 75 mg tablet,delayed release (DR/EC) 75 mg PO Q12H PRN (Reason: pain) Qty: 20 0RF No Action tizanidine 4 mg capsule 4 mg PO BID PRN (Reason: Back Pain) omeprazole 20 mg capsule,delayed release(DR/EC) 20 mg PO DAILY (DME) Custom Molded Orthotics See Rx Instructions .Route .MEDSUPPLY Qty: 1 0RF Rx Instructions: As directed, to be custom made by [facility] Physical Therapy Department I am requesting authorization to perform molds of his feet in podiatry clinic at [facility] and for custom orthotics to be manufactured through [facility] physical therapy department to treat plantar fasciitis bilaterally on this patient. Would require authorization for custom molded orthotics L code 3030 and dispensing through physical therapy CPT code 75645 calcipotriene 0.005 % cream 1 applic topical BID Qty: 120 1RF Rx Instructions: rub in gently and completely prn to affected areas. May use on face triamcinolone acetonide 0.1 % ointment 1 applic topical BID Qty: 80 2RF Rx Instructions: to knees BID alt. with clobetasol as needed for flares no more than 2 wks/mo clomipramine 25 mg capsule 25 mg PO QPM ciclopirox 8 % solution 1 applic topical DAILY 28 Days Qty: 6.6 0RF (DME) Supinator See Rx Instructions .Route .MEDSUPPLY Qty: 1 0RF Rx Instructions: As directed aripiprazole [Abilify] 5 mg tablet 5 mg PO DAILY bupropion HCl [Wellbutrin XL] 300 mg tablet extended release 24 hr 300 mg PO QAM zolpidem [Ambien] 10 mg tablet PO clobetasol 0.05 % ointment 1 applic topical BID 14 Days Qty: 60 1RF Rx Instructions: to affected areas on knees no more than 2 wks/mo prn alternating with triamcinolone naproxen 500 mg tablet See Rx Instructions .ROUTE .COMPLEX Qty: 60 2RF Dose Instruction: TAKE ONE TABLET BY MOUTH TWICE A DAY TAKE WITH FOOD. Rx Instructions: TAKE ONE TABLET BY MOUTH TWICE A DAY TAKE WITH FOOD. Discharge Orders: Discharge ED (Routine); Ordered 08/17/24 Ordered By: Jordi Castano Referrals: Madeleine Khan MD [Primary Care Provider, Family Practice] Discharge Diet: Usual diet Discharge Activity: Resume usual activity Patient Instructions: Opioid Safety, Pain Management Activity Restrictions/Additional Instructions: Thank you for choosing [facility] for your healthcare needs today. It is very important that you follow up as instructed or that you return to the Emergency Department should you have concerns or if your condition changes or worsens in any way. You are seen emergency room with complaint of pain radiating from the neck down to the shoulder into the upper arm. This is consistent with a nerve impingement x-ray right shoulder showed a questionable acromion fracture. This was not definitive as the findings on the x-ray were very subtle. Recommend that you follow-up with orthopedics. Will make a follow-up appointment in the meantime gave you medications to treat the discomfort. You were given a steroid shot in the emergency room you can begin the oral steroid taper tomorrow use the muscle relaxant and diclofenac as needed. Print Language: Prydeinig Coding Level of Care Code ED Data Consultant for Kev Jacobson
[2024-08-17] MEDS: ketorolac 60 mg/2 mL INJ IM (09:27)
[2024-08-17] MEDS: dexamethasone 10 mg/mL INJ IM (09:30)
[2024-08-17 09:32] VITALS: BP 120/87; PULSE 85; O2SAT 97
--- NOTE | 2024-08-17 09:41 | DCPLANNER ---
messaged ortho for er f/u
[2024-08-17 09:54] VITALS: BP 127/84; PULSE 89; O2SAT 97
== END 2024-08-17 09:55 | disposition home or self-care (01) ==
PROVIDERS: Emergency Provider Family Medicine; PCP Family Medicine
DX: S42.121A Displaced fracture of acromial process, right shoulder, initial encounter for closed fracture (principal); M54.12 Radiculopathy, cervical region; I10 Essential (primary) hypertension; K21.9 Gastro-esophageal reflux disease without esophagitis; Z79.899 Other long term (current) drug therapy; Z87.891 Personal history of nicotine dependence; W06.XXXA Fall from bed, initial encounter
CPT/HCPCS: 73030; 93005; 96372; 99284; J1100; J1885

== ENCOUNTER → 2024-08-21 07:52 | Outpatient (BNVA) | payer OTHER, SELFPAY | PROVIDERS: PCP Family Medicine; Visit Provider Orthopaedic Surgery | DX: M25.511 Pain in right shoulder (principal); S42.121A Displaced fracture of acromial process, right shoulder, initial encounter for closed fracture; X58.XXXA Exposure to other specified factors, initial encounter | CPT/HCPCS: 73030; 99214 ==

== ENCOUNTER 2024-08-27 07:49 | Outpatient (CLI) | payer OTHER, SELFPAY ==
--- NOTE | 2024-08-27 08:00 | MR_ITS ---
WS: [id number] MRI RIGHT SHOULDER HISTORY: Right shoulder pain COMPARISON: 07/23/2023 TECHNIQUE: Multiplanar sequences of the shoulder joint are submitted. Moderate narrowing of the AC joint. There is a small amount of fluid to the AC joint and a small amount of marrow edema in the distal clavicle. No definite edema within the acromion. No os acromion. Significant split tear within the biceps tendon extends over a long distance. Biceps tendon remains in the bicipital groove. There is increased fluid within the tendon sheath. Mildly high riding humeral head. Subchondral cyst within the humeral head. No fractures identified. Torn retracted supraspinatus tendon. Tendon is retracted to the medial humeral head. Large fluid gap directly over the humeral head. Subscapularis tendon is intact. Mild tendinopathy. Infraspinatus tendon with no definite tear. There may be a very tiny insertion site tear at the humeral head. Reidentified is abnormal signal in the superior and posterior labrum consistent with tears. MR/MR shoulder RT wo con* [id number] IMPRESSION: 1. Increased signal in the AC joint from mild AC sprain. Marrow edema in the d istal clavicle. No marrow edema in the acromion. 2. Significant change in appearance of the biceps tendon since the prior study . There is a large split tear extending over a long distance with tenosynovitis . 3. New complete tear of the supraspinatus tendon retracted to the medial humer al head. 4. Subscapularis tendinopathy. 5. Reidentified is abnormal signal in the superior posterior labrum consistent with tears. 6. Increasing subchondral cystic changes in the humeral head.
== END 2024-08-27 07:50 | disposition home or self-care (01) ==
LOC: RAD 07:49
PROVIDERS: Visit Provider Orthopaedic Surgery
DX: S46.211A Strain of muscle, fascia and tendon of other parts of biceps, right arm, initial encounter (principal); M75.21 Bicipital tendinitis, right shoulder; S43.51XA Sprain of right acromioclavicular joint, initial encounter; X58.XXXA Exposure to other specified factors, initial encounter; R93.6 Abnormal findings on diagnostic imaging of limbs
CPT/HCPCS: 73221

== ENCOUNTER 2024-10-07 18:03 | Emergency (ER) | payer OTHER, SELFPAY ==
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
[2024-10-07 18:12] VITALS: BP 128/75; PULSE 95; RESP 14; TEMP 36.4; O2SAT 96
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
[2024-10-07] MEDS: HYDROcodone-acetaminophen 5-325 mg Tablet 1 TAB PO (18:46)
--- NOTE | 2024-10-08 16:06 | PC.NURSE ---
Ortho referral sent.
--- OUTSIDE RECORDS SUMMARY | 2024-10-09 03:06 | XMS_ITS | Clinical Summary ---
Author Organization [facility] Administrative Offices Address [address] [place] [id number] Care Team Providers Care Endorsement Clerk Name Role Phone Madeleine Khan MD Primary Care Provider [phone] Medications BUPROPION HCL ORAL Take by mouth. Active zolpidem (AMBIEN) 10 mg tablet Take 10 mg by mouth nightly as needed for Insomnia. Active losartan (COZAAR) 25 mg tablet Take 25 mg by mouth daily. Active clomiPRAMINE (ANAFRANIL) 75 mg capsule Take 75 mg by mouth daily at bedtime. Active omeprazole (PriLOSEC) 20 mg Capsule, Delayed Release(E.C.) Take 20 mg by mouth daily. 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 Gender Identity Not on file Sexual Orientation Not on file Last Filed Vital Signs Vital Sign Reading Time Taken Comments Blood Pressure 127/83 08/06/2023 3:06 PM CDT Pulse 96 08/06/2023 3:06 PM CDT Temperature - - Respiratory Rate 18 08/06/2023 3:06 PM CDT Oxygen Saturation 98% 08/06/2023 2:56 PM CDT Inhaled Oxygen Concentration - - Weight 83.9 kg (185 lb) 07/26/2023 3:18 PM CDT Height 180.3 cm (5' 11 ) 07/26/2023 3:18 PM CDT Body Mass Index 25.8 07/26/2023 3:18 PM CDT Plan of Treatment Health Maintenance Due Date Last Done Comments HPV VACCINES (1 - Male 3-dos e series) 02/20/1995 INFLUENZA VACCINE (#1) 2024 0, 12/26/2018, 01/28/2018, Additional history exists DTAP/TDAP/TD VACCINES (4 - T d or Tdap) 01/05/2029 01/05/2019, 10/16/2010, 04/24/2008 COLORECTAL SCREENING 08/05/2030 08/06/2023, 08/06/19 24 HEPATITIS B VACCINES Completed 12/22/2008, 06/09/2008, 04/24/2008 Procedures Procedure Name Priority Date/Time Associated Diagnosis Comments COLONOSCOPY REPORT 08/06/2023 2: 46 PM CDT from Last 3 Months or Most Recently Relevant to Health Maintenance Results * COLONOSCOPY REPORT (08/06/2023 2:46 PM CDT) Narrative Procedure Note Michael Stallings MD - 08/06/2023 2:46 PM CDT [facility] GI Patient Name: Fei Panchal Procedure Date: 08/06/2023 Date of : 1980 Admit Type: Outpatient Age: 43 Attending MD: Michael Stallings , , Procedure: Colonoscopy Indications: Change in bowel habits Providers: Michael Stallings Referring MD: Madeleine Khan MD Medicines: Monitored Anesthesia Care Complications: No immediate complications. Procedure: Pre-Anesthesia Assessment: - The risks and benefits of the procedure and the sedation options and risks were discussed with the patient. All questions were answered and informed consent was obtained. - ASA Grade Assessment: II - A patient with mild systemic disease. After I obtained informed consent, the scope was passed under direct vision. Throughout the procedure, the patient's blood pressure, pulse, and oxygen saturations were monitored continuously. The Colonoscope was introduced through the anus and advanced to 5 cm into the ileum. The colonoscopy was performed without difficulty. The patient tolerated the procedure well. The quality of the bowel preparation was adequate. Estimated Blood Loss: Estimated blood loss was minimal. Findings: The perianal and digital rectal examinations were normal. A 6 mm polyp was found in the descending colon. The polyp was sessile. The polyp was removed with a cold snare. Resection and retrieval were complete. A diffuse area of mild melanosis was found in the entire colon. The exam was otherwise without abnormality on direct and retroflexion views. The terminal ileum appeared normal. Impression: - One 6 mm polyp in the descending colon, removed with a cold snare. Resected and retrieved. - Melanosis in the colon. - The examination was otherwise normal on direct and retroflexion views. - The examined portion of the ileum was normal. Recommendation: - Await pathology results. Michael Stallings, 08/06/2023 2:46:07 PM Number of Addenda: 0 Note Initiated On: 08/06/2023 2:16 PM Scope Withdrawal Time 0 hours 9 minutes 16 seconds Scope In: 2:27:38 PM Scope Out: 2:41:39 PM [address] [place], [place] Michael Stallings MD GI PROCEDURE ORDERABLES Final Result from Last 3 Months or Most Recently Relevant to Health Maintenance Insurance * Guarantor: [facility] [employer] Account Type Relation to Patient Date of Phone Billing Address Corporate Other DEFAULT ADDRESS [address] [employer] Advance Directives For more information, please contact: [phone] * Full Code (Latest Code Status on File) Date Activated Date Inactivated Comments 08/06/2023 1:47 PM 08/06/2023 5:16 PM Care Teams Endorsement Clerk Relationship Specialty Start Date End Date Madeleine Khan MD [address] [facility] [id number] PCP - General Family Practice 07/31/23
--- OUTSIDE RECORDS SUMMARY | 2024-10-09 03:06 | XMS_ITS | Encounter Summary ---
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
--- OUTSIDE RECORDS SUMMARY | 2024-10-09 03:06 | XMS_ITS | Encounter Summary ---
Author Organization [email or web address] [facility] Address [address] [place] [address] Care Team Providers Care Coat Joiner Name Role Phone Unavailable Primary Care Provider Unavailabl e Encounter Details Date Type Department Care Team (Latest Contact Info) Description 12/27/1999 Outpatient Historical [facility] Dominiqueamuliktita Jesse H NO ADDRESS ON FILE Counseling on other sexually transmitted diseases (Primary Dx) Social History Tobacco Use Types Packs/Day Years Used Date Smoking Tobacco: Never Assessed Sex and Gender Information Value Date Recorded Sex Assigned at Not on file 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
--- OUTSIDE RECORDS SUMMARY | 2024-10-09 03:06 | XMS_ITS | Clinical Summary ---
Author Organization [facility] Address [address] 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
== END 2024-10-07 18:50 | disposition home or self-care (01) ==
PROVIDERS: Emergency Provider Emergency Medicine
DX: S43.102A Unspecified dislocation of left acromioclavicular joint, initial encounter (principal); X58.XXXA Exposure to other specified factors, initial encounter; I10 Essential (primary) hypertension; Z87.891 Personal history of nicotine dependence
CPT/HCPCS: 73030; 99283; J9999

== ENCOUNTER → 2024-10-20 07:54 | Outpatient (BNVA) | payer OTHER, SELFPAY | PROVIDERS: PCP Family Medicine; Visit Provider Orthopaedic Surgery | DX: S43.439A Superior glenoid labrum lesion of unspecified shoulder, initial encounter (principal); X58.XXXA Exposure to other specified factors, initial encounter | CPT/HCPCS: 73030; 99203 ==

== ENCOUNTER 2024-10-22 15:35 | Outpatient (CLI) | payer OTHER, SELFPAY ==
--- NOTE | 2024-10-22 16:00 | MR_ITS ---
WS: [id number] MRI LEFT SHOULDER HISTORY: Chronic shoulder pain. Limited range of motion. COMPARISON: 10/20/2024 TECHNIQUE: Multiplanar sequences of the shoulder joint are submitted. Moderate AC joint arthritis. Narrowing of the AC joint with osteophytes. Multiple well-circumscribed osseous fragments near the AC joint. Mild osteophyte encroachment upon the myotendinous portion of the supraspinatus. Mild downsloping acromion. Moderate subacromial impingement. No os acromion. Biceps tendon noted within the bicipital groove although it is small caliber. Mild increased T2 signal in the biceps tendon. High riding humeral head nearly abutting the undersurface of the acromion. Mild narrowing of the glenohumeral joint. Subchondral cystic changes in the posterior lateral humeral head. Full-thickness tear extending over a width of 10 mm involving the distal supraspinatus. Tendon is minimally retracted and ends directly over the humeral head. No significant muscle atrophy or edema. Tendinopathy subscapularis tendon. No full-thickness tear. Infraspinatus and teres minor are intact. Intrasubstance degeneration of the labrum. No tear is identified. There is a very small amount of increased signal in the labrum near the biceps tendon insertion which may be a very small tear. MR/MR shoulder LT wo con* [id number] IMPRESSION: 1. Full-thickness tear, 10 mm, distal supraspinatus tendon with minimal retrac tion. 2. Tendinopathy distal subscapularis tendon but no tear identified. 3. Moderate AC joint arthritis. Several well-corticated osseous fragments asso ciated with the AC joint with mild impingement upon the supraspinatus tendon. 4. Subacromial impingement. 5. Small caliber biceps tendon with tendinopathy. 6. There is a very short segment area of increased T2 signal near the biceps l abral complex. A small labral tear is not excluded. This is best seen on the co [place] T2 fat saturated sequence.
== END 2024-10-22 15:36 | disposition home or self-care (01) ==
LOC: RAD 15:36
PROVIDERS: PCP Family Medicine; Visit Provider Orthopaedic Surgery
DX: S46.812A Strain of other muscles, fascia and tendons at shoulder and upper arm level, left arm, initial encounter (principal); M19.012 Primary osteoarthritis, left shoulder; M25.712 Osteophyte, left shoulder; X58.XXXA Exposure to other specified factors, initial encounter
CPT/HCPCS: 73221

== ENCOUNTER 2024-10-26 14:55 | Outpatient (CLI) | payer OTHER, SELFPAY ==
[2024-10-26 15:27] LABS: Hematocrit 39.8 % (37-53); Hemoglobin 13.30 g/dL (11.27-16.99); Mean Corpuscular HGB Conc 33.4 g/dL (30-55); Mean Corpuscular Hemoglobin 30.3 pg (27-33); Mean Corpuscular Volume 90.7 fl (82-101); Nucleated Red Blood Cells % 0 %; Platelet Count 293 10^3/cmm (157-399); Red Blood Count 4.39 10^6/uL (3.85-5.65); White Blood Count 6.82 10^3/uL (3.29-11.43)
[2024-10-26 15:49] LABS: Anion Gap 13.9 (5-19); Blood Urea Nitrogen 13 mg/dL (6-20); Calcium 9.4 mg/dL (8.5-10.5); Carbon Dioxide 27 mmol/L (22-29); Chloride 101 mmol/L (98-107); Glucose 94 mg/dL (65-115); Osmolality Calculated 286 mOsm/kg (285-295); Potassium 3.9 mmol/L (3.5-5.1); Sodium 138 mmol/L (136-145)
[2024-10-26 16:09] LABS: Hepatitis B Surface Antigen Non-Reactive (Nonreactive)
== END 2024-10-26 14:56 | disposition home or self-care (01) ==
PROVIDERS: PCP Family Medicine; Visit Provider Nurse Practitioner Family
DX: L40.59 Other psoriatic arthropathy (principal)
CPT/HCPCS: 36415; 80048; 85025; 86480; 86704; 86706; 86803; 87340

== ENCOUNTER → 2025-03-08 12:54 | Outpatient (BNVA) | payer OTHER, SELFPAY | PROVIDERS: PCP Family Medicine; Visit Provider Nurse Practitioner Family | DX: L40.0 Psoriasis vulgaris (principal); L57.8 Other skin changes due to chronic exposure to nonionizing radiation; L81.4 Other melanin hyperpigmentation; L40.59 Other psoriatic arthropathy | CPT/HCPCS: 99214 ==